=== PATIENT | female | born 1950 | race Caucasian/White ===

== ENCOUNTER 2024-10-25 21:11 | Inpatient (IN) | payer MEDICARE, SELFPAY ==
[2024-10-25] VITALS (19 sets, daily range): BP systolic 113–164; BP diastolic 56–72; PULSE 68–77; TEMP 36.4; O2SAT 85–95; BMI 51.9
--- NOTE | 2024-10-25 21:19 | ECG_ITS ---
The [facility] Test Date: 2024-10-25 Pat Name: Myriam Altamirano Department: Room: - Gender: Female Cross Country/Track And Field Coach: : 1950 Requested By: [id number] Order Number: [id number] Reading MD: SYDNI MONTOYA M.D. Measurements Intervals [place] Rate: 68 P: 68 WV: 168 QRS: 38 QRSD: 92 T: 45 QT: 388 QTc: 405 Interpretive Statements 1100 Sinus rhythm 2420 RSR (QR) in lead V1/V2, consistent with right ventricular conduction delay 9130 borderline ECG Compared to ECG 07/17/2020 17:14:17 Sinus tachycardia no longer present Electronically Signed On 10-28-2024 12:46:32 EDT by SYDNI MONTOYA M.D.
[2024-10-25 22:00] LABS: Hematocrit 36.0 % (36.0-48.0); Hemoglobin 10.7 g/dL (12.0-16.0); Immature Granulocytes Abs Auto 0.03 10^3/uL (0.00-0.03); Immature Granulocytes Pct Auto 0.4 % (0.0-0.5); Lymphocytes Absolute Auto 1.7 10^3/uL (1.2-3.8); Mean Corpuscular HGB Conc 29.7 g/dL (29.9-35.2); Mean Corpuscular Hemoglobin 29.2 pg (26.7-34.0); Mean Corpuscular Volume 98.4 fL (81.0-99.0); Platelet Count 255 10^3/uL (150-450); Red Blood Count 3.66 10^6/uL (4.20-5.40); White Blood Count 7.9 10^3/uL (4.0-11.0)
[2024-10-25 22:18] LABS: Anion Gap 3.0; Blood Urea Nitrogen 10.0 mg/dL (7.0-18.0); Calcium 8.8 mg/dL (8.5-10.1); Carbon Dioxide 40.9 mmol/L (21.0-32.0); Chloride 102 mmol/L (98-107); Estimated GFR (African America >60 (>=60 mL/min/1.73m^2); Estimated GFR (Non-African Ame >60 (>=60 mL/min/1.73m^2); Glucose 114 mg/dL (74-106); Magnesium 2.1 mg/dL (1.8-2.4); Potassium 3.9 mmol/L (3.5-5.1); Sodium 142 mmol/L (136-145)
[2024-10-26] VITALS (44 sets, daily range): BP systolic 120–171; BP diastolic 59–72; PULSE 67–97; RESP 12; TEMP 36.3–36.6; O2SAT 73–96; BMI 51.9
--- NOTE | 2024-10-26 01:01 | ED.GENADUL1 ---
HPI HPI - General Adult General Chief complaint: Syncope Stated complaint: other Time Seen by Provider: 10/25/24 21:18 Source: patient Mode of arrival: ambulance Limitations: no limitations History of Present Illness HPI narrative: Patient is a 74-year-old female, history significant for morbid obesity, COPD on 3 L nasal cannula, hypertension, diabetes, presenting to the emergency department via EMS for concerns of a syncopal event. Patient was watching TV with her mother when she reportedly went unresponsive. The mother could not awake the patient, so she called EMS. According to EMS, on their arrival, the patient was unresponsive and required numerous sternal rubs until she finally came to. There is no report of seizure-like activity. She had no postictal state. The patient herself states she is tired, and does not believe that she passed out. She has never had episodes of syncope in the past. She denies history of heart disease, prior DC, pacemaker placement, or history of arrhythmia. She is currently asymptomatic without fevers, chills, flulike symptoms, abdominal pain, nausea, vomiting, headache, weakness, or any other concerning symptoms. Related Data Home Medications ?Medication ?Instructions ?Recorded ?Confirmed baclofen 10 mg tablet 10 mg PO Q8H 10/25/24 10/25/24 budesonide 160 mcg-glycopyr 9 1 inh inhalation DAILY 10/25/24 10/25/24 mcg-formot 4.8 mcg/actuation HFA inhaler (Breztri Aerosphere) esomeprazole magnesium 40 mg 40 mg PO Q24H 10/25/24 10/25/24 capsule,delayed release fluticasone propionate inhalation 10/25/24 furosemide 40 mg tablet (Lasix) 40 mg PO DAILY 10/25/24 10/25/24 levothyroxine 137 mcg tablet 137 mcg PO DAILY 10/25/24 10/25/24 losartan 100 mg tablet 100 mg PO DAILY 10/25/24 10/25/24 montelukast 10 mg tablet 10 mg PO DAILY 10/25/24 10/25/24 trazodone 150 mg tablet 150 mg PO HS 10/25/24 10/25/24 Allergies Allergy/AdvReac Type Severity Reaction Status Date / Time Penicillins Allergy Hives Verified 10/25/24 21:25 Sulfa (Sulfonamide Allergy Rash Verified 10/25/24 21:25 Antibiotics) Review of Systems ROS Status of ROS 10 or more systems reviewed and unremarkable except as noted in history and below PFSH PFSH Social History Little interest or pleasure in doing things: not at all Feeling down, depressed, or hopeless: not at all Exam Narrative Exam Narrative: CONSTITUTIONAL: Well-appearing, answering questions and following commands appropriately SKIN: Was warm and dry. EYES: No scleral icterus or conjunctival pallor EARS, NOSE, THROAT: No JVD. RESPIRATORY: Clear to auscultation bilaterally, no wheezes, crackles, or stridor, no use of accessory muscles. On 3 L nasal cannula CARDIOVASCULAR: Normal rate and regular rhythm. There is no S3, S4, murmur, rub. Radial and dorsalis pedis pulses are 2+ and symmetrical. GASTROINTESTINAL: Abdomen was soft, non-tender, and non-distended. There is no guarding or rebound tenderness MUSCULOSKELETAL: There was no lower extremity edema, erythema, or tenderness. NEUROLOGIC: Patient is awake and alert. Equal strength in all extremities. Facies were symmetrical. Constitutional Vital Signs, click to edit/add: Last Vital Signs Temp 97.6 F 10/25/24 21:18 Pulse 76 10/25/24 23:10 Resp 17 10/25/24 23:10 BP 130/56 10/25/24 23:00 Pulse Ox 85 L 10/25/24 23:10 O2 Del Method Nasal Cannula 10/25/24 21:18 O2 Flow Rate 3 10/25/24 21:18 Course Vital Signs Vital signs: Vital Signs Pulse Oximetry 94 L 10/25/24 21:16 Temperature 97.6 F 10/25/24 21:18 Pulse Rate 76 10/25/24 23:10 Respiratory Rate 17 10/25/24 23:10 Blood Pressure 130/56 10/25/24 23:00 Pulse Oximetry 85 L 10/25/24 23:10 Oxygen Delivery Method Nasal Cannula 10/25/24 21:18 Oxygen Delivery Flow Rate 3 10/25/24 21:18 Medical Decision Making [facility] Narrative Medical decision making narrative: Patient is a 74-year-old female presenting to the emergency department via EMS for witnessed syncopal event. Vital signs on arrival are within normal limits. She is afebrile and hemodynamically stable. She is saturating 95% on her home oxygen requirements of 3 L nasal cannula. Patient awake, alert, and mentating appropriately. She does not appear to be postictal. She has an unremarkable exam with no neurologic deficits. Differential diagnose includes cardiogenic syncope, arrhythmia, ACS, electrolyte/metabolic derangement, and less likely seizure. IV was established and laboratory studies were obtained. CT head was ordered. Twelve-lead EKG demonstrated normal sinus rhythm without evidence of acute myocardial ischemia. Normal rate of 68. Normal axis. Patient has a right bundle branch block, with no prior EKGs for comparison - likely related to underlying history of COPD. No ST segment elevations. Laboratory studies were unremarkable. No significant electrolyte derangement. She is alkalotic, however this is likely chronic and related to COPD/chronic CO2 retention/elevated bicarb. No evidence of acute kidney injury. No anemia, leukocytosis, or thrombocytopenia. Initial and repeat 2-hour troponin were negative. CT head independently reviewed/interpreted by myself demonstrated no acute intracranial pathology or hemorrhage. Final read by radiology pending at the time of admission. Though the patient failed to identify any emergent pathologies, given the patient's history and risk factors, I do believe the patient warrants an observation to the hospital on telemetry for further monitoring/workup. I did discuss the patient with Dr. Everett, who accepted the patient. Medical Records Medical records reviewed: Yes I reviewed the patient's medical records Lab Data Lab results reviewed: Yes I reviewed the patient's lab results Labs: Lab Results 10/25/24 10/26/24 Range/Units 21:45 00:08 WBC 7.9 (4.0-11.0) 10^3/uL RBC 3.66 L (4.20-5.40) 10^6/uL Hgb 10.7 L (12.0-16.0) g/dL Hct 36.0 (36.0-48.0) % MCV 98.4 (81.0-99.0) fL MCH 29.2 (26.7-34.0) pg MCHC 29.7 L (29.9-35.2) g/dL RDW 13.5 (11.0-15.0) % Plt Count 255 (150-450) 10^3/uL MPV 10.3 (9.5-13.5) fL Neut % (Auto) 63.9 (43.0-75.0) % Lymph % (Auto) 21.9 (20.5-60.0) % [place] % (Auto) 7.9 (1.7-12.0) % Eos % (Auto) 5.0 (0.9-7.0) % Baso % (Auto) 0.9 (0.2-2.0) % Neut # (Auto) 5.0 (1.4-6.5) 10^3/uL Lymph # (Auto) 1.7 (1.2-3.8) 10^3/uL [place] # (Auto) 0.6 (0.3-0.8) 10^3/uL Eos # (Auto) 0.4 (0.0-0.7) 10^3/uL Baso # (Auto) 0.1 (0.0-0.1) 10^3/uL Abs Immat Gran (auto) 0.03 (0.00-0.03) 10^3/uL Imm/Tot Granulo (auto) 0.4 (0.0-0.5) % Sodium 142 (136-145) mmol/L Potassium 3.9 (3.5-5.1) mmol/L Chloride 102 (98-107) mmol/L Carbon Dioxide 40.9 H (21.0-32.0) mmol/L Anion Gap 3.0 BUN 10.0 (7.0-18.0) mg/dL Creatinine 0.86 (0.55-1.02) mg/dL Est GFR ( Amer) >60 (>=60 mL/min/1.73m^2) Est GFR (Non-Af Amer) >60 (>=60 mL/min/1.73m^2) BUN/Creatinine Ratio 11.6 Glucose 114 H (74-106) mg/dL Calcium 8.8 (8.5-10.1) mg/dL Magnesium 2.1 (1.8-2.4) mg/dL Troponin I High Sens 5.4 5.4 (4.0-51.3) pg/mL Discharge Plan Discharge Chief Complaint: Syncope Clinical Impression: Syncope Qualifiers: Encounter type: initial encounter Patient Disposition: Admitted as Observation Time of Disposition Decision: 00:49 Condition: Good Additional Instructions: Telemetry
--- NOTE | 2024-10-26 05:42 | XR_ITS ---
[address] [address] Patient Name: FRANCIE GARCIA MRN: [id number] date: 1950 Sex: F Assigned Patient Location: MS Current Patient Location: MS Accession/Order Number: [id number] Exam Date: 10/26/2024 09:00 Report Date: 10/26/2024 09:00 At the request of: MARY MANN MD Procedure: XR chest 1V Single view chest: CLINICAL HISTORY: SYncope COMPARISON: None FINDINGS: Cardiomegaly with vascular congestion. No consolidation pneumothorax or large pleural effusion or free air. XR/XR chest 1V IMPRESSION: CHF FINDINGS. Impression dictated by: Shiv Schultz Jr.OMariaa 10/26/2024 9:00 AM Dictation Location: [place] [address] Electronically authenticated by: [id number] Y Date: 10/26/2024 09:00
[2024-10-26] MEDS: LEVOTHYROXINE SODIUM 25 MCG TABLET PO (06:23)
[2024-10-26] MEDS: ASPIRIN 81 MG TAB.CHEW PO (06:23)
[2024-10-26] MEDS: LEVOTHYROXINE SODIUM 112 MCG TABLET PO (06:23)
[2024-10-26 06:44] LABS: Hematocrit 33.8 % (36.0-48.0); Hemoglobin 10.1 g/dL (12.0-16.0); Immature Granulocytes Abs Auto 0.02 10^3/uL (0.00-0.03); Immature Granulocytes Pct Auto 0.3 % (0.0-0.5); Lymphocytes Absolute Auto 1.7 10^3/uL (1.2-3.8); Mean Corpuscular HGB Conc 29.9 g/dL (29.9-35.2); Mean Corpuscular Hemoglobin 29.4 pg (26.7-34.0); Mean Corpuscular Volume 98.5 fL (81.0-99.0); Platelet Count 210 10^3/uL (150-450); Red Blood Count 3.43 10^6/uL (4.20-5.40); White Blood Count 7.0 10^3/uL (4.0-11.0)
[2024-10-26 07:05] LABS: Anion Gap 3.1; Blood Urea Nitrogen 10.0 mg/dL (7.0-18.0); Calcium 8.8 mg/dL (8.5-10.1); Carbon Dioxide 41.0 mmol/L (21.0-32.0); Chloride 102 mmol/L (98-107); Estimated GFR (African America >60 (>=60 mL/min/1.73m^2); Estimated GFR (Non-African Ame >60 (>=60 mL/min/1.73m^2); Glucose 101 mg/dL (74-106); Potassium 4.1 mmol/L (3.5-5.1); Sodium 142 mmol/L (136-145)
--- NOTE | 2024-10-26 08:00 | ECG_ITS ---
[facility] Test Date: 2024-10-26 Pat Name: FRANCIE GARCIA Department: Room: [facility] Gender: Female Research Technologist: : 1950 Requested By: Order Number: [id number] Reading MD: SYDNI MONTOYA M.D. Measurements Intervals [place] Rate: 84 P: 60 OR: 176 QRS: 27 QRSD: 94 T: 53 QT: 359 QTc: 425 Interpretive Statements SINUS RHYTHM POSSIBLE RIGHT VENTRICULAR CONDUCTION DELAY [RSR (QR) IN V1/V2] Compared to ECG 10/25/2024 21:24:40 No significant changes Electronically Signed On 10-28-2024 12:47:16 EDT by SYDNI MONTOYA M.D.
[2024-10-26] MEDS: FUROSEMIDE 40 MG TABLET PO (09:41)
[2024-10-26] MEDS: PANTOPRAZOLE SODIUM 40 MG TABLET.DR PO (09:41)
[2024-10-26] MEDS: SENNOSIDES/DOCUSATE SODIUM 1 TAB TABLET PO (09:41)
[2024-10-26] MEDS: MONTELUKAST SODIUM 10 MG TABLET PO (09:41)
[2024-10-26] MEDS: LOSARTAN POTASSIUM 50 MG TABLET 100 MG PO (09:41)
[2024-10-26] MEDS: BUDESONIDE 0.5 MG/2 ML AMPULE NEB IH ×2 (12:20→20:47)
[2024-10-26] MEDS: ALBUTEROL SULFATE 2.5 MG/3 ML VIAL NEB IH ×3 (12:20→20:46)
--- NOTE | 2024-10-26 13:41 | PM.HP ---
HPI H&P: HPI History of Present Illness Chief complaint: SYNCOPE Narrative: This is a 74-year-old woman who was brought to the ER in [place] after having an episode of syncope with unresponsiveness at home. She was thereafter admitted to the hospital. The ER report was that she was reclining in her recliner at home, as she usually does, watching TV. 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 The mother could not wake up this patient so she called EMS. According to the EMS on their arrival the patient was unresponsive and required numerous sternal rubs until she finally came to. There was no report of seizure activity. She had no postictal state. The patient stated that she was tired. When I see her on rounds this morning the patient says that she did not know what was going on until she really woke up in the ambulance. She recalls having another episode like this 6 months ago, but she did not seek medical treatment for that. She denies any symptoms that are abnormal over the last few weeks or months. At baseline she is very minimally active. She says that she cares for her mother who is 93 and her mother's in their home. There are notes in the chart that say that she is exhausted from caring for this individual but when I asked the patient about this she says that it something that she enjoys and she finds it easy to take care of her mother. The patient will mostly cook freezer meals for all 3 people in the household or occasionally order in food. She says the 3 of us are just not able to cook for ourselves. And so the patient leads a very sedentary lifestyle just ambulating around their dwelling. With this level of ambulation she does not feel any lightheadedness or dizziness or any presyncopal symptoms. She does not feel any chest pain or pressure or shortness of breath or feeling like she might pass out when she does that level of exertion. She says that she had an episode of passing out like this 6 months ago that was exactly the same: It was in the evening and they were watching television when she was in the recliner and she thinks that she went to sleep for a while. Her mother became concerned and poked at her until the patient gradually woke up. She does have a BMI of 51.9. Her weight is 128.82 kg. She has been using oxygen at 3 L by nasal cannula for a long time. She has a history of hypertension and diabetes. She says that she used to see Dr. Day in [place]. She says that she can no longer see him. She says I must of mouth off and said something bad. She certainly has a lot of short-term memory issues. She had difficulty telling me the name of her new primary care provider. She says I have had a lot of difficulty remembering things over the last year. She thinks that she was told that she had asthma but she cannot remember which doctor told her about asthma. She did have a sleep apnea machine that she threw away a few years ago. She cannot really remember the details. She describes the typical problems with somebody getting used to wearing a sleep apnea machine with it being uncomfortable and waking up at nighttime and finding out that the sleep apnea machine had been mildly dislodged. She cannot tell me for certain how many years ago she threw away the sleep apnea machine. Overnight there must been a large concern for obstructive sleep apnea because there are orders in the computer that she can use her own sleep apnea machine and the hospital BiPAP machine is in the room but the patient says it was not applied to her last night, so I have a clinical suspicion that the nighttime nursing staff saw her to have obstructive sleep apnea breathing and became acutely concerned. She says that she quit smoking 40 years ago. When she did smoke it was 1 pack a day. So I would give her 29-leso-iwdu history. She says that she only drinks alcohol on holidays. She denies illicit drug use. Opioid HPI Opioid Management Most Recent Pain and Opioid Data: Last Pain Assessment Today, 05:16 Last ORT Total Score 0 Today, 04:37 Last ORT Risk Category Low Risk Today, 04:37 Review of Systems ROS Narrative A 10 point review of systems is negative except as mention above in the history present illness. [facility] Medical History COPD (chronic obstructive pulmonary disease) ?J44.9 - Chronic obstructive pulmonary disease, unspecified (ICD-10) Hypertension ?I10 - Essential (primary) hypertension (ICD-10) Family History (Updated 10/26/24 @ 13:47 by CRISTHIAN HERMOSILLO) Other Family history of hypertension Social History (Updated 10/26/24 @ 05:10 by Sujatha Werner RN) Within the past year, how often did you have a drink containing alcohol: never Score interpretation: A score less than 3 is consistent with normal alcohol consumption. Smoking status: Never smoker Second hand tobacco smoke exposure: No Non-prescribed substance use: denies use Known occupational exposures/hazards: No Highest level of school completed/degree received: 9th grade Do you want help with school or training: No Are you now , , , , never or living with a partner: don't know In a typical week, how many times do you talk on the telephone with family, friends, or neighbors: 3 or more times per week Little interest or pleasure in doing things: not at all Feeling down, depressed, or hopeless: not at all Feel stressed/tense/nervous/anxious/difficulty sleeping: only a little Life stressors: other Life stressor details: Pt feels exhausted because she is taking care of her 93yr old mother at home, and is up constantly through out the evening/night with her. Due to disability, difficulty making decisions: No Meds Home Medications and Allergies Home Medications ?Medication ?Instructions ?Recorded ?Confirmed ?Type baclofen 10 mg tablet 10 mg PO Q8H PRN MUSCLE SPASMS 10/25/24 10/26/24 History budesonide 160 mcg-glycopyr 9 1 inh inhalation DAILY 10/25/24 10/25/24 History mcg-formot 4.8 mcg/actuation HFA inhaler (Breztri Aerosphere) esomeprazole magnesium 40 mg 40 mg PO Q24H 10/25/24 10/25/24 History capsule,delayed release furosemide 40 mg tablet (Lasix) 40 mg PO DAILY 10/25/24 10/25/24 History levothyroxine 137 mcg tablet 137 mcg PO DAILY 10/25/24 10/25/24 History losartan 100 mg tablet 100 mg PO DAILY 10/25/24 10/25/24 History montelukast 10 mg tablet 10 mg PO DAILY 10/25/24 10/25/24 History trazodone 150 mg tablet 150 mg PO HS 10/25/24 10/25/24 History Allergies Allergy/AdvReac Type Severity Reaction Status Date / Time Penicillins Allergy Hives Verified 10/25/24 21:25 Sulfa (Sulfonamide Allergy Rash Verified 10/25/24 21:25 Antibiotics) Exam Narrative Exam Narrative: General: In a bedside recliner chair. Head: Normocephalic atraumatic. Eyes: EOMI. PERRLA. Neck: Very broad-based neck. I do not appreciate any lymphadenopathy. Mouth: Large tongue. Mallampati grade 4 oropharynx. Pulmonary: Clear to auscultation throughout. No wheezing. Cardiac: Regular rate and rhythm with no murmurs to auscultation. Perfect normal sinus rhythm on telemetry. Gastrointestinal: Abdomen soft, normal bowel sounds to auscultation. Skin: Warm and dry and well-perfused. Lower extremities: Pitting edema from her ankles up to about her shins bilaterally. Neurologic: It is clear that she has some short-term memory defects. She moves all 4 extremities well so I detect no gross neurologic deficits. Constitutional Vital Signs, click to edit/add: Last Vital Signs Temp 97.9 F 10/26/24 11:40 Pulse 76 10/26/24 12:21 Resp 18 10/26/24 11:40 BP 146/72 H 10/26/24 11:40 Pulse Ox 96 10/26/24 12:21 O2 Del Method Nasal Cannula 10/26/24 12:21 O2 Flow Rate 3 10/26/24 12:21 FiO2 35 10/26/24 04:41 Results Labs Labs: Short CBC 10/25/24 10/26/24 Range/Units 21:45 06:39 WBC 7.9 7.0 (4.0-11.0) 10^3/uL Hgb 10.7 L 10.1 L (12.0-16.0) g/dL Hct 36.0 33.8 L (36.0-48.0) % Plt Count 255 210 (150-450) 10^3/uL BMP 10/25/24 10/26/24 21:45 06:39 Sodium 142 142 Potassium 3.9 4.1 Chloride 102 102 Carbon Dioxide 40.9 H 41.0 H BUN 10.0 10.0 Creatinine 0.86 0.58 Glucose 114 H 101 Calcium 8.8 8.8 Assessment and Plan Assessment and Plan (1) Syncope: Qualifiers: Syncope type: unspecified Qualified Code(s): R55 - Syncope and collapse (2) Unresponsiveness: (3) Hypertension: Qualifiers: Hypertension type: primary hypertension Qualified Code(s): I10 - Essential (primary) hypertension (4) JUNG (obstructive sleep apnea): (5) BMI 50.0-59.9, adult: (6) Diabetes mellitus: Qualifiers: Diabetes mellitus type: type 2 Diabetes mellitus terminal make up operator insulin use: without terminal make up operator use Diabetes mellitus complication status: without complication Qualified Code(s): E11.9 - Type 2 diabetes mellitus without complications (7) Chronic hypoxic respiratory failure, on home oxygen therapy: Plan Assessment: Episode of syncope with prolonged unresponsiveness. Diabetes. Hypertension. Untreated obstructive sleep apnea. BMI of 51.9; super morbid obesity. Chronic hypoxic respiratory failure on 3 L oxygen by nasal cannula at home all the time. Plan: Hospital admission, inpatient status. Check echocardiogram. Check carotid Doppler ultrasound. Continuous telemetry monitoring. Check EKG in the morning. Check labs again in the morning, including hemoglobin A1c. Depending on progress she may benefit from physical therapy and Occupational Therapy evaluations. Because the hospital BiPAP machine is in the room I offered that the patient should try it tonight because staff is nearby they can help her if she needs it and she was agreeable to do this. Further care for this patient will be provided by my hospitalist colleague Dr. Everett taking over tomorrow morning.
[2024-10-26] MEDS: ENOXAPARIN SODIUM 40 MG/0.4 ML SYRINGE SUBQ (14:52)
[2024-10-26] MEDS: BACLOFEN 10 MG TABLET PO (20:43)
[2024-10-27] VITALS (22 sets, daily range): BP systolic 112–149; BP diastolic 55–84; PULSE 64–88; RESP 12; TEMP 36.3–36.6; O2SAT 93–96
[2024-10-27] MEDS: ALBUTEROL SULFATE 2.5 MG/3 ML VIAL NEB IH ×3 (05:03→20:00)
[2024-10-27] MEDS: LEVOTHYROXINE SODIUM 112 MCG TABLET PO (05:27)
[2024-10-27] MEDS: LEVOTHYROXINE SODIUM 25 MCG TABLET PO (05:27)
[2024-10-27 06:31] LABS: Hematocrit 36.8 % (36.0-48.0); Hemoglobin 11.2 g/dL (12.0-16.0); Immature Granulocytes Abs Auto 0.03 10^3/uL (0.00-0.03); Immature Granulocytes Pct Auto 0.4 % (0.0-0.5); Lymphocytes Absolute Auto 2.2 10^3/uL (1.2-3.8); Mean Corpuscular HGB Conc 30.4 g/dL (29.9-35.2); Mean Corpuscular Hemoglobin 29.9 pg (26.7-34.0); Mean Corpuscular Volume 98.1 fL (81.0-99.0); Platelet Count 255 10^3/uL (150-450); Red Blood Count 3.75 10^6/uL (4.20-5.40); White Blood Count 7.7 10^3/uL (4.0-11.0)
[2024-10-27 06:47] LABS: Anion Gap 6.6; Blood Urea Nitrogen 13.0 mg/dL (7.0-18.0); Calcium 9.1 mg/dL (8.5-10.1); Carbon Dioxide 38.4 mmol/L (21.0-32.0); Chloride 99 mmol/L (98-107); Estimated GFR (African America >60 (>=60 mL/min/1.73m^2); Estimated GFR (Non-African Ame >60 (>=60 mL/min/1.73m^2); Glucose 112 mg/dL (74-106); Potassium 4.0 mmol/L (3.5-5.1); Sodium 140 mmol/L (136-145)
--- NOTE | 2024-10-27 06:48 | CA_ITS ---
Patient Name: FRANCIE GARCIA MR#: [id number] : 1950 Exam Date: 10/27/2024 Ordering Doctor: MARY MANN ECHOCARDIOGRAM REPORT PROCEDURE: CA ECHO DOPPLER COMPLETE INDICATIONS: Syncope COMPARISON: None. DESCRIPTION: COMPLETE ECHOCARDIOGRAM Real-time transthoracic echocardiography with 2D, M-mode, spectral and color flow Doppler performed. QUALITY: Technical quality was adequate. LEFT VENTRICLE: Normal chamber size. Mild concentric left ventricular hypertrophy. Global left ventricular systolic function is normal. LV EF: Visual estimation of left ventricular ejection fraction is 55-60%. DIASTOLIC: Diastolic function is indeterminate. ATRIAL SEPTUM: LEFT ATRIUM: Mild dilatation. RIGHT ATRIUM: Mild dilatation. RIGHT VENTRICLE: Normal chamber size. Normal right ventricular systolic function. TRICUSPID VALVE: Normal mobility and thickness. No stenosis with mild regurgitation. Moderate pulmonary hypertension. RVSP 47 mmHg. MITRAL VALVE: Normal mobility and thickness. No evidence of mitral valve stenosis. There is no mitral annular calcification. Trivial mitral regurgitation. AORTIC VALVE: Normal trileaflet appearance. No visible sclerosis. Normal leaflet mobility. No evidence of aortic valve stenosis. No aortic regurgitation. AORTIC ROOT: Normal diameter and appearance, measuring 3.3 cm. The ascending aorta is normal in size measuring 2.7 cm. PULMONIC VALVE: Normal thickness and mobility. No stenosis. Trivial regurgitation. PERICARDIUM: No evidence of pericardial effusion. IVC: Collapses with inspirations. Mild dilatation measuring 2.3 cm. PLEURA: CONCLUSION: 1. Mild concentric left ventricular hypertrophy with normal systolic function. Estimated LVEF is 55 to 60%. 2. Normal right ventricular size and systolic function. 3. Mild left atrial dilatation. 4. No significant valvular dysfunction. 5. Moderately elevated right-sided pressures. RVSP is 47 mmHg. Adult Echocardiography Procedure Report Left Ventricle LVEDD (3.7 - 5.6 cm): 4.16 cm LVESD (2.2 - 4.0 cm): 2.62 cm LVIVS thickness (0.6 - 1.2 cm): 1.19 cm LVPW thickness (0.5 - 1.0 cm): 1.13 cm e': 0.10 m/s E - e': 7.63 LVOT Max Gradient: 4.59 mm[Hg] LVOT Area (cm2): 1.07 m/s Peak Velocity (LVOT): 1.07 m/s Mean Velocity (LVOT): 0.77 m/s LVOT Diameter 2.17 cm Left Atrium Left Atrium Systolic Dimension: 4.70 cm Mitral Valve MV E to A Ratio: 1.06 Mitral Valve A-Wave Peak Velocity: 0.72 m/s Mitral Valve E-Wave Peak Velocity: 0.76 m/s Right Ventricle RV Internal Diastolic Dimension: 3.61 cm Aorta AO Root Diam: 2.70 cm Ascending Ao Diam: 2.46 cm Aortic Valve AoV Area (Peak Bassam): 2.15 cm2, 2.15 cm2 AoV Area (VTI): 2.41 cm2, 2.41 cm2 Peak Velocity(Antegrade Flow): 1.84 m/s Peak Gradient(Antegrade Flow): 13.57 mm[Hg] Mean Velocity(Antegrade Flow): 1.19 m/s Mean Gradient(Antegrade Flow): 6.75 mm[Hg] Velocity Time Integral: 35.45 cm Tricuspid Valve Peak Velocity (Regurgitant Flow): 3.13 m/s, 2.62 m/s Pulmonic Valve Mean Gradient: 3.02 mm[Hg] Mean Velocity: 0.82 m/s Peak Velocity: 1.24 m/s, 1.26 m/s Peak Gradient: 6.13 mm[Hg], 6.36 mm[Hg] Right Atrium Right Atrium Systolic Pressure: 39.71 ml, 39.71 ml Dictated by: Emiliano Caban M.D. on 10/27/2024 at 18:25 Approved by: Emiliano Caban M.D. on 10/27/2024 at 18:30
--- NOTE | 2024-10-27 07:00 | CT_ITS ---
The [address] [address] Patient Name: FRANCIE GARCIA MRN: [id number] date: 1950 Sex: F Assigned Patient Location: MS Current Patient Location: MS Accession/Order Number: [id number] Exam Date: 10/27/2024 12:59 Report Date: 10/27/2024 13:04 At the request of: CRISTHIAN HERMOSILLO Procedure: CT head/brain wo/w con CT BRAIN WITHOUT CONTRAST: CLINICAL HISTORY: poor memory. decreased responsiveness. COMPARISON: CT head 10/26/2024 TECHNIQUE: Contiguous axial unenhanced images were obtained through the brain. This CT exam was performed using one or more following dose reduction techniques: Automated exposure control, adjustment of the mA and/or kV according to patient size, or use of iterative reconstruction technique. FINDINGS: There is no evidence of midline shift, intra or extra-axial fluid collection, hemorrhage or CT evidence of acute large vascular distribution stroke. Central involutional changes and moderate chronic small vessel ischemic disease. No shift midline structure. Basal cisterns are patent. Cataract surgery. Visualized paranasal sinuses are clear. The surrounding soft tissues are normal. CT/CT head/brain wo/w con IMPRESSION: NO ACUTE INTRACRANIAL ABNORMALITY. MODERATE CHRONIC MICROVASCULAR CHANGES. Impression dictated by: Robbie Davidson M.D. 10/27/2024 1:04 PM Dictation Location: [place] [address] Electronically authenticated by: [id number] Y Date: 10/27/2024 13:04
--- NOTE | 2024-10-27 07:00 | ECG_ITS ---
[facility] Test Date: 2024-10-27 Pat Name: FRANCIE GARCIA Department: Room: [facility] Gender: Female Hand Winder: : 1950 Requested By: [id number] Order Number: [id number] Reading MD: SYDNI MONTOYA M.D. Measurements Intervals [place] Rate: 71 P: 64 LA: 176 QRS: 22 QRSD: 95 T: 39 QT: 381 QTc: 415 Interpretive Statements SINUS RHYTHM POSSIBLE RIGHT VENTRICULAR CONDUCTION DELAY [RSR (QR) IN V1/V2] Borderline ECG Compared to ECG 10/26/2024 07:47:09 No significant changes Electronically Signed On 10-28-2024 12:50:06 EDT by SYDNI MONTOYA M.D.
[2024-10-27] MEDS: FUROSEMIDE 40 MG TABLET PO (08:51)
[2024-10-27] MEDS: ENOXAPARIN SODIUM 40 MG/0.4 ML SYRINGE SUBQ (08:51)
[2024-10-27] MEDS: PANTOPRAZOLE SODIUM 40 MG TABLET.DR PO (08:51)
[2024-10-27] MEDS: LOSARTAN POTASSIUM 50 MG TABLET 100 MG PO (08:51)
[2024-10-27] MEDS: ASPIRIN 81 MG TAB.CHEW PO (08:51)
[2024-10-27] MEDS: MONTELUKAST SODIUM 10 MG TABLET PO (08:51)
--- NOTE | 2024-10-27 09:45 | CM.NOTE ---
Rounds made with Dr. Everett, discussed with pt diagnosis and plan of care. Pt does wear home oxygen @3L NC through [employer]. Pt also states she had home BIPAP but got angry and put it in the garbage. Pt does states it has been several years since last sleep study. Updated SS and she will call [employer] to attempt to track where pt's BIPAP had been from, pt does not recall at this time. Pt will have Sleep study ordered prior to discharge for outpatient sleep study to be completed.
--- NOTE | 2024-10-27 10:05 | SWNOTE1 ---
SW spoke to case management and pt will need sleep study, per patient she had thrown away her bipap/cpap machine. She thinks it was from [employer], which was bought out by [email or web address]. SW to call. MORENA called [employer] and they do not have a record on file that says she has had Bipap/Cpap machine from them, only oxygen.
--- NOTE | 2024-10-27 10:16 | SWNOTE1 ---
MORENA called [employer] back to find out how much oxygen is provided. MSC voiced she is prescribed 2 liters of home oxygen continuous nasal canula. Prescription was from March. SW asked again about CPAP, they voiced they can see she was prescribed one, but it was not by them. SW to call other DME companies.
[2024-10-27] MEDS: ACETAMINOPHEN 325 MG TABLET 650 MG PO ×2 (10:25→18:34)
--- NOTE | 2024-10-27 10:36 | SWNOTE1 ---
MORENA met with pt to discuss dc needs. Pt lives at home with her mother and her step father. SW asked if she cared for them at home. She voiced that she mainly just makes sure they have food. She voiced she is just there to keep her mother company. She stated her mother has caregivers that come in to help her step father with bathing and they also help her mother with bathing. She voiced she is not overwhelmed with caring for her mother at home. Pt does wear home oxygen. MORENA advised that SW called [employer] that she is prescribed 2 liters. She voiced she has been turning it up. MORENA advised to pt that we will monitor while here and if needs new prescription, we will check on that. SW let pt know that we will have our therapy team come in and work with pt. Pt voiced that her daughter is a doctor and she wants her to go to rehab for a short time. She voiced she is open to this. SW let her know SW will be back to discuss once our hospitalist speaks with her daughter and therapy works with her. MORENA did ask her about her home cpap/bipap. She voiced she is not sure where it was from. MORENA provided names of various DME companies, she recognized [employer]. SW to call.
[2024-10-27] MEDS: BUDESONIDE 0.5 MG/2 ML AMPULE NEB IH ×2 (11:18→20:00)
--- NOTE | 2024-10-27 12:26 | PM.PN ---
Progress Note: Subjective Subjective Interval history: Patient slept well last night using hospital CPAP machine. Patient is. No reported nausea or vomiting Exam Narrative Exam Narrative: [pt is awake and alert. oriented to place, time and person, morbidly obese HEENT: [place] conjunctiva and NL buccal mucosa Neck: Supple, no tenderness Endocrine: No Thyromegaly. Vascular: No JVD or carotid bruit. Lymphatic: No cervical lymphadenopathy. Chest: CTA no DTP. Heart RRR, no extra sound or murmur. Abd: Soft, no tenderness, no rebound and no rigidity. Increase abd girth therefore clinically I could not exclude the possibility of intra abd mass or organomegaly. LE: No cyanosis or clubbing, no varices or edema. Neuro: A A O. Nl speech, comprehension and attention. Nl and symetrical motor and tone examination through out. []] Constitutional Vital Signs, click to edit/add: Last Vital Signs Temp 97.7 F 10/27/24 11:50 Pulse 76 10/27/24 11:50 Resp 20 10/27/24 11:50 BP 129/79 10/27/24 11:50 Pulse Ox 94 L 10/27/24 11:50 O2 Del Method Nasal Cannula 10/27/24 11:50 O2 Flow Rate 3 10/27/24 11:50 FiO2 94 10/27/24 05:03 Progress Note: Objective Labs Labs: Short CBC 10/27/24 Range/Units 06:18 WBC 7.7 (4.0-11.0) 10^3/uL Hgb 11.2 L (12.0-16.0) g/dL Hct 36.8 (36.0-48.0) % Plt Count 255 (150-450) 10^3/uL BMP 10/27/24 06:18 Sodium 140 Potassium 4.0 Chloride 99 Carbon Dioxide 38.4 H BUN 13.0 Creatinine 0.87 Glucose 112 H Calcium 9.1 Progress Note: A&P Assessment and Plan (1) Syncope: Qualifiers: Syncope type: unspecified Qualified Code(s): R55 - Syncope and collapse (2) Unresponsiveness: (3) Hypertension: Qualifiers: Hypertension type: primary hypertension Qualified Code(s): I10 - Essential (primary) hypertension (4) JUNG (obstructive sleep apnea): (5) BMI 50.0-59.9, adult: (6) Diabetes mellitus: Qualifiers: Diabetes mellitus type: type 2 Diabetes mellitus termite exterminator insulin use: without termite exterminator use Diabetes mellitus complication status: without complication Qualified Code(s): E11.9 - Type 2 diabetes mellitus without complications (7) Chronic hypoxic respiratory failure, on home oxygen therapy: Plan Transient loss of consciousness. Sleep apnea, noncompliance with using CPAP in fact patient throughout her CPAP machine in the garbage. Could be related to a sleep apnea, hypercapnic episode. CAT scan of the head does not show any acute intracranial process. No neurological deficit to suggest acute ischemic CVA. Alternatively, patient could have had nonconvulsive seizure with a postictal state. No significant metabolic derangement seen on her blood work. Continue CPAP. Try to arrange for another CPAP and/or sleep study. May need to follow-up with neurology. May need to have an EEG. Continue telemetry monitoring rule out cardiac dysrhythmia as a cause of her transit unconsciousness. Echocardiogram rule out significant valvular disease or cardiomyopathy. Chronic hypoxic respiratory failure Patient states that she has both COPD and asthma. She smoked for 20 years in the past. She quit 4 years ago. I recommend another PFT in the outpatient setting. Recommend follow-up with the pulmonary. Hypertension hypothyroidism Continue preadmission home medications Morbid obesity Diet, exercise and lifestyle modification. Consider the use of GLP or gastric bypass. To be arranged in the outpatient setting. Chronic medical conditions not listed above, incidental findings seen on labs and imaging. These would need to be addressed. Could be addressed when time and condition are appropriate. Could be addressed in the outpatient setting by PCP collaboration with other needed outpatient providers.
--- NOTE | 2024-10-27 14:03 | SWNOTE1 ---
MORENA called pt's daughter, Dr. Glover, she is a physician out of state. SW and daughter discussed discharge planning. Daughter had concerns about her weakness and concerns about her ABG'S and if that was causing her confusion. Pt's daughter also had other medical questions she wanted to discuss with physician. SW did let daughter know we did order PT/OT and SW will review those notes once eval completed. Pt's daughter did speak about her cpap and how pt told her she had thrown it away. Daughter is unsure of where it was from. Daughter did ask if we could do sleep study here at hospital during her stay. MORENA advised that we do not do that at this hospital. SW did let her know that SW called [employer] in regards to home 02 and that SW is trying to find out where her old Cpap was from and if we could look in to an emergency one until patient has sleep study. Pt's daughter voiced that transportaton is hard as well as she and other family live out of state. She was hoping pt could get to rehab and then have sleep study done at rehab or have them transport here. MORENA again advised we are waiting to see if she qualifies for rehab and then pt would have to be agreeable. MORENA advised pt's daughter that SW will reach out to physician and see if he can call her and touch base. SW to keep daughter updated in regards to discharge planning.
--- NOTE | 2024-10-27 14:24 | SWNOTE1 ---
MORENA called [facility] to see if pt received a CPAP from them. MORENA spoke to Ariel. She was able to look up pt's name and she said that she is under there [facility] halfway, meaning that pt was at a facility and got one? Korey could see it was from July of 2023 and the [place]. Korey voiced she will call the superintendent container terminal care side of [facility] and call MORENA back.
--- NOTE | 2024-10-27 14:41 | SWNOTE1 ---
MORENA received call back from Korey at [facility] and she voiced she was incorrect and that pt was with them. She stated pt had a Non-Invasive Vent, nebulizers, and oxygen from them, but it was all discontinued back in [address] Silver.
[2024-10-27] MEDS: BACLOFEN 10 MG TABLET PO (21:37)
--- NOTE | 2024-10-27 22:31 | PC.NURSE ---
2200: Patient refusing to wear bipap tonight, states since she has to get up to pee through the night, she does not want to be hooked up to more than she already is. Respiratory notified by [employer].
[2024-10-28] VITALS (22 sets, daily range): BP systolic 99–160; BP diastolic 58–74; PULSE 74–99; RESP 12; TEMP 36.4–36.8; O2SAT 80–97
[2024-10-28] MEDS: ZOLPIDEM TARTRATE 10 MG TABLET PO (00:47)
[2024-10-28] MEDS: LEVOTHYROXINE SODIUM 112 MCG TABLET PO (05:47)
[2024-10-28] MEDS: LEVOTHYROXINE SODIUM 25 MCG TABLET PO (05:47)
--- NOTE | 2024-10-28 08:46 | SWNOTE1 ---
SW called [facility] and pt is not in there system for any DME. Estefani at [facility] did say they do sell used CPAPs for $300, they would need prescripton with settings on it. They do not deliver it, family would have to pick it up.
[2024-10-28] MEDS: ASPIRIN 81 MG TAB.CHEW PO (08:51)
[2024-10-28] MEDS: PANTOPRAZOLE SODIUM 40 MG TABLET.DR PO (08:51)
[2024-10-28] MEDS: MONTELUKAST SODIUM 10 MG TABLET PO (08:51)
[2024-10-28] MEDS: LOSARTAN POTASSIUM 50 MG TABLET 100 MG PO (08:51)
[2024-10-28] MEDS: ENOXAPARIN SODIUM 40 MG/0.4 ML SYRINGE SUBQ (08:51)
[2024-10-28] MEDS: FUROSEMIDE 40 MG TABLET PO (08:51)
--- NOTE | 2024-10-28 10:00 | CM.NOTE ---
Rounds made with Dr. Everett. Potential discharge to home today.
--- NOTE | 2024-10-28 10:04 | SWNOTE1 ---
MORENA called and spoke to pt's daughter. SW updated her about the cpap and the phone calls made to DME companies and that the only way we cane get her one at discharge is from [facility] and it would be a used one for $300. Daughter will pay for this and would like to pursue. SW also let her know that someone would have to pick it up as well. Pt's daughter did ask about [facility] and if someone is able to provide script, SW unsure but will ask DME if they are given with script or bought out right. Daughter also asked about therapy recommendations. MORENA checked and HH recommended. SW to speak with pt about this. Daughter also asked about [employer] doctor in area, SW asked case management and [facility] used to do this, but at this time we have very limited doctors accepting new patients. MORENA advised that Dr. Morales is the only doctor we know accepting new patients. Daughter would like SW to purse this. SW to call Dr. Morales's office. MORENA updated Dr. Everett.
--- NOTE | 2024-10-28 10:27 | CM.NOTE ---
Sleep study forms along with chart information given to Sleep Lab. Discharge Summary will be sent when completed. Sleep Lab will then precert study and call [facility] with time/date of testing.
--- NOTE | 2024-10-28 10:39 | SWNOTE1 ---
MORENA called 's office and set patient up with follow up on Sunday10/31/24. MORENA faxed referral to [address], this is one of the comapnies that are in network with insurance. MORENA to talk with pt. MORENA called Estefani at [facility] and she will fax over order for cpap and we will have Dr. Everett sign order and complete the order.
[2024-10-28] MEDS: BUDESONIDE 0.5 MG/2 ML AMPULE NEB IH ×2 (11:24→20:00)
[2024-10-28] MEDS: ALBUTEROL SULFATE 2.5 MG/3 ML VIAL NEB IH ×2 (11:24→20:00)
--- NOTE | 2024-10-28 11:26 | RESP.RT ---
decreased to 3 LPM
--- NOTE | 2024-10-28 11:34 | SWNOTE1 ---
MORENA called and updated daughter in regards to pt voicing that her brother may have found cpap in closet. Daughter will check on this, but would like to try and get the cpap from [facility]. MORENA advised we are working on this at this time. MORENA updated daughter about sending referral to [address] SW also let daughter know nurse is completing walk test and pt may need home oxygen bumped up as well. Daughter voiced understanding.
--- NOTE | 2024-10-28 11:35 | SWNOTE1 ---
Referral sent to [address] Referral included face sheet, ED note, H&P, provider notes, case management report, and PT/OT notes.
--- NOTE | 2024-10-28 12:03 | SWNOTE1 ---
MORENA faxed face sheet and CPAP order form to [facility]. MORENA also sent picture of walk test to Dr. Everett.
--- NOTE | 2024-10-28 12:15 | PM.PN ---
Progress Note: Subjective Subjective Interval history: Patient did not use her BiPAP machine at night. She is feeling well today. Saturation dropped to 84% on room air this morning. Patient oxygen requirement increased from 2 up to 4 L Exam Narrative Exam Narrative: Morbidly obese. Chest exam revealed fine crackles. Heart is regular. Abdomen soft Constitutional Vital Signs, click to edit/add: Last Vital Signs Temp 98.2 F 10/28/24 07:45 Pulse 77 10/28/24 12:00 Resp 18 10/28/24 07:45 BP 122/73 10/28/24 07:45 Pulse Ox 97 10/28/24 11:25 O2 Del Method Nasal Cannula 10/28/24 11:25 O2 Flow Rate 4 10/28/24 11:25 FiO2 35 10/27/24 05:03 Progress Note: A&P Assessment and Plan (1) Syncope: Qualifiers: Syncope type: unspecified Qualified Code(s): R55 - Syncope and collapse (2) Unresponsiveness: (3) Hypertension: Qualifiers: Hypertension type: primary hypertension Qualified Code(s): I10 - Essential (primary) hypertension (4) JUNG (obstructive sleep apnea): (5) BMI 50.0-59.9, adult: (6) Diabetes mellitus: Qualifiers: Diabetes mellitus type: type 2 Diabetes mellitus intermediate manager insulin use: without intermediate manager use Diabetes mellitus complication status: without complication Qualified Code(s): E11.9 - Type 2 diabetes mellitus without complications (7) Chronic hypoxic respiratory failure, on home oxygen therapy: Plan Transient loss of consciousness. Sleep apnea, noncompliance with using CPAP in fact patient throughout her CPAP machine in the garbage. Could be related to a sleep apnea, hypercapnic episode. CAT scan of the head does not show any acute intracranial process. No neurological deficit to suggest acute ischemic CVA. Alternatively, patient could have had nonconvulsive seizure with a postictal state. No significant metabolic derangement seen on her blood work. Continue CPAP. Try to arrange for another CPAP and/or sleep study. May need to follow-up with neurology. May need to have an EEG. Continue telemetry monitoring rule out cardiac dysrhythmia as a cause of her transit unconsciousness. Echocardiogram rule out significant valvular disease or cardiomyopathy. Echocardiogram came back negative for significant valvular disease or cardiomyopathy to explain to contribute to her loss of consciousness. Acute on chronic hypoxic respiratory failure Acute on chronic diastolic heart failure Obstructive sleep apnea Patient states that she has both COPD and asthma. She smoked for 20 years in the past. She quit 4 years ago. Patient uses 2 L at home but over the last 24 hours her oxygen requirement was increased to 4 L per Chest x-ray showed vascular congestion. Requested the BNP. Requested TSH. Additional diuretics. Patient thus far is 3 L negative balance I recommend another PFT in the outpatient setting. Recommend follow-up with the pulmonary. Patient will be arranged to have CPAP machine to use at home until her sleep study is completed. Patient may need additional pulmonary testing in the outpatient setting including but not limited to PFTs as listed above as well as CAT scan imaging of the chest Requested D-dimer and if positive proceed with the CT of the chest. Hypertension hypothyroidism Continue preadmission home medications Morbid obesity Diet, exercise and lifestyle modification. Consider the use of GLP or gastric bypass. To be arranged in the outpatient setting. Chronic medical conditions not listed above, incidental findings seen on labs and imaging. These would need to be addressed. Could be addressed when time and condition are appropriate. Could be addressed in the outpatient setting by PCP collaboration with other needed outpatient providers. I called and had discussed her case with her daughter Riddhi on the phone on 10/27
[2024-10-28] MEDS: DEXAMETHASONE SOD PHOS 4 MG/ML VIAL 10 MG IV (13:12)
[2024-10-28] MEDS: FUROSEMIDE 40 MG/4 ML VIAL IVP (13:12)
--- NOTE | 2024-10-28 13:30 | SWNOTE1 ---
MORENA received a call from [address] and they are able to accept. Pt is not discharging today. 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 MORENA also let pt's daughter know she is not discharging today.
[2024-10-28 14:49] LABS: Thyroid Stimulating Hormone 8.158 uIU/mL (0.358-3.740)
[2024-10-28 14:52] LABS: NT Pro B Type Natriuretic Pept 93.0 pg/mL (<=900.0)
[2024-10-28] MEDS: ALPRAZOLAM 0.5 MG TABLET PO (20:43)
[2024-10-29] VITALS (8 sets, daily range): BP systolic 119–140; BP diastolic 60–80; PULSE 70–81; RESP 12; TEMP 36.4–36.6; O2SAT 92–96
[2024-10-29] MEDS: LEVOTHYROXINE SODIUM 112 MCG TABLET PO (05:47)
[2024-10-29] MEDS: LEVOTHYROXINE SODIUM 25 MCG TABLET PO (05:47)
[2024-10-29 05:52] LABS: Anion Gap 5.4; Blood Urea Nitrogen 17.0 mg/dL (7.0-18.0); Calcium 9.1 mg/dL (8.5-10.1); Carbon Dioxide 40.9 mmol/L (21.0-32.0); Chloride 97 mmol/L (98-107); Estimated GFR (African America >60 (>=60 mL/min/1.73m^2); Estimated GFR (Non-African Ame >60 (>=60 mL/min/1.73m^2); Glucose 154 mg/dL (74-106); Potassium 4.3 mmol/L (3.5-5.1); Sodium 139 mmol/L (136-145)
--- NOTE | 2024-10-29 08:08 | P.DS_ITS ---
DS: Providers Provider Date of admission: 10/26/24 12:20 Primary care physician: Non-Staff Physician, Consults: 10/27/24 Occupational Therapy Eval and Treat Routine Reason for consultation: weakness Physical Therapy Eval and Treat Routine Reason for consultation: weakness DS: Diagnosis Discharge Diagnosis (1) Syncope: Qualifiers: Syncope type: unspecified Qualified Code(s): R55 - Syncope and collapse (2) Unresponsiveness: (3) Hypertension: Qualifiers: Hypertension type: primary hypertension Qualified Code(s): I10 - Essential (primary) hypertension (4) JUNG (obstructive sleep apnea): (5) BMI 50.0-59.9, adult: (6) Diabetes mellitus: Qualifiers: Diabetes mellitus type: type 2 Diabetes mellitus skilled nursing insulin use: without drama teacher use Diabetes mellitus complication status: without complication Qualified Code(s): E11.9 - Type 2 diabetes mellitus without complications (7) Chronic hypoxic respiratory failure, on home oxygen therapy: Plan As listed above and others that are not listed DS: Summary Hospital Course Hospital Course: Mrs. Altamirano is a 74-year-old female who was brought to the emergency room after she became unresponsive. Transient loss of consciousness. Sleep apnea, noncompliance with using CPAP in fact patient threw her CPAP machine in the garbage. Could be related to a sleep apnea, hypercapnic episode. CAT scan of the head does not show any acute intracranial process. Carotid ultrasound does not show any significant carotid stenosis No neurological deficit to suggest acute ischemic CVA. Alternatively, patient could have had nonconvulsive seizure with a postictal state. No significant metabolic derangement seen on her blood work. Continue CPAP. Insurance company would not approve CPAP machine without sleep study that could not be done in the inpatient setting. We were able to get this to use the CPAP machine for her. Her daughter paid [id number] for the machine May need to follow-up with neurology. May need to have an EEG. Telemetry monitoring does not show any cardiac dysrhythmia that with cause syncopal episode. May require to have Holter monitor in the outpatient setting Echocardiogram rule out significant valvular disease or cardiomyopathy. Echocardiogram came back negative for significant valvular disease or cardiomyopathy to explain to contribute to her loss of consciousness. If patient experience future episode of diminished responsiveness or unresponsiveness I would certainly recommend then for patient to have an EEG and Holter monitor to be arranged by PCP in the outpatient setting Acute on chronic hypoxic respiratory failure Acute on chronic diastolic heart failure Obstructive sleep apnea Obesity with suspicion of restrictive lung disease. Patient states that she has both COPD and asthma. She smoked for 20 years in the past. She quit 4 years ago. Patient uses 2 L at home but over the last 24 hours her oxygen requirement was increased to 4 L yesterday but today is down to 2 L Chest x-ray showed vascular congestion. Requested the BNP. Requested TSH. BMP came back normal. TSH is slightly elevated. Patient is on Synthroid already. Additional diuretics. Patient thus far is 5 L negative balance I recommend another PFT in the outpatient setting. Recommend follow-up with the pulmonary. Patient will be arranged to have CPAP machine to use at home until her sleep study is completed. Patient will pay [id number] for the CPAP machine until it gets approved after sleep study. Patient may need additional pulmonary testing in the outpatient setting including but not limited to PFTs as listed above as well as CAT scan imaging of the chest. Pulmonary team at [facility] would not accept to see patient unless referral is made by PCP. This will be addressed by PCP. Requested D-dimer and if positive proceed with the CT of the chest. D-dimer is negative. Losartan have been decreased down to 50 mg daily to allow for additional diuretic use. Recommended BMP to be done at PCPs office when patient sees him within 7 days. That is to monitor electrolytes and kidney function. Hypertension hypothyroidism Continue preadmission home medications Losartan have been decreased down to 50 mg daily to allow for additional diuretics use Morbid obesity Diet, exercise and lifestyle modification. Consider the use of GLP or gastric bypass. To be arranged in the outpatient setting. Anxiety. Requested anxiety medication. Avoid benzodiazepine due to her sleep apnea and chronic hypoxic respiratory failure. I started patient on BuSpar. Chronic medical conditions not listed above, incidental findings seen on labs and imaging. These would need to be addressed. Could be addressed when time and condition are appropriate. Could be addressed in the outpatient setting by PCP collaboration with other needed outpatient providers. Patient has multiple complex medical issues as listed above and others that are not listed. All appear to be stable. Patient is feeling great and requesting to be discharged home since yesterday. This time, I do not have any clear or strong clinical justification to extend inpatient hospitalization. Patient however will require close and frequent monitoring as well as additional work- up, investigation and therapeutic intervention that could take place from this point on post discharge. That is to prevent relapse, decompensation, rehospitalization and other medical implications. I instructed patient to ask her primary care doctor to obtain [facility] record entirely to address abnormalities seen on labs and imaging that I have and have not addressed during this hospitalization, follow-up on pending blood work, imaging and pathology is if available and to follow-up on needed medical care in the outpatient setting. Time Spent with Patient Time attestation: Total time spent providing and/or coordinating discharge services: Exam Constitutional Vital Signs, click to edit/add: Last Vital Signs Temp 97.7 F 10/29/24 07:34 Pulse 81 10/29/24 07:56 Resp 16 10/29/24 07:34 BP 140/80 10/29/24 07:34 Pulse Ox 92 L 10/29/24 07:34 O2 Del Method Nasal Cannula 10/29/24 07:34 O2 Flow Rate 3 10/29/24 07:34 FiO2 35 10/29/24 05:25 DS: Data Data Completed and Pending Labs on day of discharge: Labs from last 24 hours 10/29/24 10/28/24 05:25 12:33 D-Dimer 0.50 Sodium 139 Potassium 4.3 Chloride 97 L Carbon Dioxide 40.9 H Anion Gap 5.4 BUN 17.0 Creatinine 0.65 Est GFR ( Amer) >60 Est GFR (Non-Af Amer) >60 BUN/Creatinine Ratio 26.2 Glucose 154 H Calcium 9.1 NT-Pro-B Natriuret Pep 93.0 TSH 8.158 H Discharge Plan Discharge Disposition: Home, Self-Care Condition: Good Discharge Medications: New sennosides-docusate sodium [Senna Plus] 8.6-50 mg Tablet 1 tab PO BID PRN (Reason: Constipation) Qty: 60 0RF aspirin 81 mg Tablet,Chewable 81 mg PO QD Qty: 60 2RF albuterol sulfate 90 mcg/actuation HFA aerosol inhaler 2 inh inhalation Q8H PRN (Reason: shortness of breath or wheezing) Qty: 8.5 2RF spironolactone [Aldactone] 25 mg tablet 25 mg PO DAILY Qty: 30 2RF buspirone 10 mg tablet 10 mg PO BID PRN (Reason: anxiety) Qty: 60 1RF Continued baclofen 10 mg tablet 10 mg PO Q8H PRN (Reason: MUSCLE SPASMS) Breztri Aerosphere 160-9-4.8 mcg/actuation HFA aerosol inhaler 1 inh INHALATION DAILY esomeprazole magnesium 40 mg capsule,delayed release(DR/EC) 40 mg PO Q24H levothyroxine 137 mcg tablet 137 mcg PO DAILY montelukast 10 mg tablet 10 mg PO DAILY furosemide [Lasix] 40 mg tablet 40 mg PO DAILY meloxicam 15 mg tablet 15 mg PO DAILY PRN (Reason: pain) pravastatin 20 mg tablet 20 mg PO DAILY Changed trazodone 150 mg tablet 75 mg PO HS Qty: 0 0RF losartan 100 mg tablet 50 mg PO DAILY Qty: 0 0RF Print Language: Sinhala Patient Instructions: Near Syncope (DC) Activity Restrictions/Additional Instructions: I may not have addressed or treated all of your medical illnesses or the abnormal blood work or imaging studies during this hospitalization. Please ask your primary care provider to obtain [facility] records entirely to follow up on all of the abnormal physical, laboratory, and imaging findings that I have not addressed. Please return back to the emergency room or seek medical attention if your symptoms worsen or return. Please use your oxygen Please use CPAP machine Please follow-up with the sleep study. Your blood pressure medications have been changed. You may need to have additional adjustment of your blood pressure medication to be handled by your primary care doctor to keep your blood pressure within acceptable range. I would recommend a blood test called BMP to be done at your primary care doctor's office next time you see him. Please communicate this to him. Discharging you from [facility] does not mean that your medical care ends here and now. You may still need additional monitoring, work up, investigation, and treatment plan to be handled from this point on by out patient providers including your primary care provider and specialists. For any medication question, please contact your retail pharmacist or your primary care provider. Thank you. Forms: Portal Instructions Follow Up Appointments: Follow up appointment with Dr. Negro Morales Sunday10/31/2024 at 1:15pm Address:[address] [facility] Please bring insurance card and ID
--- NOTE | 2024-10-29 08:51 | CM.NOTE ---
Notified Dr. Morales's office of Hospitalist recommendations for office visit on Thursday, October 31, 2024. Nurse @ Dr. Morales's office notes in chart for Dr. Morales to review.
--- NOTE | 2024-10-29 09:08 | SWNOTE1 ---
MORENA called pt's daughter to update her of discharge today. MORENA did let daughter know that the script for CPAP was sent to [facility] and she will just need to call the number SW provided to coordinate payment for CPAP. MORENA let daughter know that [address] will be calling within 48 hours of discharge as well. Daughter is aware of follow up with new PCP, Dr. Morales, on Sunday. Daughter will work on transport and MORENA reminded daughter to have whoever picks her up bring oxygen with them to get pt home. No further questions/needs at this time. MORENA faxed dc med rec, CRF, and dc summary to [address] Daughter was also provided with phone number to sleep lab.
[2024-10-29] MEDS: FUROSEMIDE 40 MG TABLET PO (09:31)
[2024-10-29] MEDS: ENOXAPARIN SODIUM 40 MG/0.4 ML SYRINGE SUBQ (09:31)
[2024-10-29] MEDS: LOSARTAN POTASSIUM 50 MG TABLET PO (09:31)
[2024-10-29] MEDS: PANTOPRAZOLE SODIUM 40 MG TABLET.DR PO (09:31)
[2024-10-29] MEDS: ASPIRIN 81 MG TAB.CHEW PO (09:31)
[2024-10-29] MEDS: MONTELUKAST SODIUM 10 MG TABLET PO (09:31)
--- NOTE | 2024-10-29 14:32 | NUTR.NU ---
Pt was admitted 10/26/24 w/dx syncope, CRF, HTN, DM2, peripheral edema. PO intakes of regular diet are consistently 100%. BG readings range from 101-154; Na+ levels have remained WNL throughout hospitalization. No dietary recommendations at this time. Will continue to follow PRN.
--- NOTE | 2024-10-30 14:54 | CM.DCFOLLOWU ---
Person spoke with: Myriam How are you feeling? Much better How is your pain? No pain Did you understand your discharge instructions? Yes Do you have any questions about your discharge instructions? No Were you given any prescriptions at discharge? Yes Were you able to get your prescriptions filled? I am picking them up today Do you understand how to take your medications as ordered? Yes Do you have any questions about your follow up appointment and do you plan to keep your follow up appointment? I see Dr. Morales tomorrow and plan on going to appointment Is there anything else that you would like to discuss? No Questions/Comments/Concerns/Other:
== END 2024-10-29 12:35 | disposition home health service (06) | DRG 154 ==
LOC: ER 10-26 00:50 → MS 10-26 04:35
PROVIDERS: Admitting Provider Internal Medicine; Emergency Provider Student in an Organized Health Care Education/Training Program; Visit Provider Hospitalist
DX: G47.33 Obstructive sleep apnea (adult) (pediatric) (principal); I50.33 Acute on chronic diastolic (congestive) heart failure; J96.21 Acute and chronic respiratory failure with hypoxia; E87.3 Alkalosis; Z68.43 Body mass index [BMI] 50.0-59.9, adult; R56.9 Unspecified convulsions; E66.01 Morbid (severe) obesity due to excess calories; E11.9 Type 2 diabetes mellitus without complications; I45.10 Unspecified right bundle-branch block; J44.89 Other specified chronic obstructive pulmonary disease; Z79.890 Hormone replacement therapy; Z79.899 Other long term (current) drug therapy; Z99.81 Dependence on supplemental oxygen; Z91.199 Patient's noncompliance with other medical treatment and regimen due to unspecified reason; I11.0 Hypertensive heart disease with heart failure; F41.9 Anxiety disorder, unspecified; Z87.891 Personal history of nicotine dependence; Z82.49 Family history of ischemic heart disease and other diseases of the circulatory system
CPT/HCPCS: 36415; 70450; 70470; 71045; 80048; 83036; 83735; 83880; 84443; 84484; 85025; 85378; 93005; 93306; 93880; 94640; 94660; 94761; 97116; 97161; 97165; 97530; 97535; 99285; J1100; J1650; J1938; Q9967

== ENCOUNTER 2024-11-06 09:06 | Outpatient (OUT) | payer MEDICARE, SELFPAY ==
[2024-11-06 09:41] LABS: Hematocrit 34.3 % (36.0-48.0); Hemoglobin 10.5 g/dL (12.0-16.0); Immature Granulocytes Abs Auto 0.04 10^3/uL (0.00-0.03); Immature Granulocytes Pct Auto 0.5 % (0.0-0.5); Lymphocytes Absolute Auto 1.2 10^3/uL (1.2-3.8); Mean Corpuscular HGB Conc 30.6 g/dL (29.9-35.2); Mean Corpuscular Hemoglobin 29.6 pg (26.7-34.0); Mean Corpuscular Volume 96.6 fL (81.0-99.0); Platelet Count 255 10^3/uL (150-450); Red Blood Count 3.55 10^6/uL (4.20-5.40); White Blood Count 7.4 10^3/uL (4.0-11.0)
[2024-11-06 10:48] LABS: Alanine Aminotransferase 17 U/L (14-59); Albumin Globulin Ratio 0.7; Albumin Level 2.8 g/dL (3.4-5.0); Alkaline Phosphatase 76 U/L (46-116); Anion Gap 5.0; Aspartate Amino Transferase 14 U/L (15-37); Blood Urea Nitrogen 18.0 mg/dL (7.0-18.0); Calcium 8.7 mg/dL (8.5-10.1); Carbon Dioxide 35.5 mmol/L (21.0-32.0); Chloride 104 mmol/L (98-107); Cholesterol 161 mg/dL (<=200); Estimated GFR (African America >60 (>=60 mL/min/1.73m^2); Estimated GFR (Non-African Ame 56 (>=60 mL/min/1.73m^2); Free T3 2.04 pg/mL (2.18-3.98); Globulin 4.1 g/dL; Glucose 95 mg/dL (74-106); HDL Cholesterol 74 mg/dL (40-60); NT Pro B Type Natriuretic Pept 94.0 pg/mL (<=900.0); Potassium 4.5 mmol/L (3.5-5.1); Sodium 140 mmol/L (136-145); Thyroid Stimulating Hormone 9.759 uIU/mL (0.358-3.740); Total Protein 6.9 g/dL (6.4-8.2); Triglycerides 78 mg/dL (<=150); VLDL CHOLESTEROL 15.6 mg/dL
[2024-11-06 11:17] LABS: Iron 32.0 ug/dL (50.0-170.0)
== END 2024-11-06 09:07 | disposition home or self-care (01) ==
LOC: LAB 09:08
PROVIDERS: PCP Family Medicine; Visit Provider Family Medicine
DX: E03.9 Hypothyroidism, unspecified (principal); J44.9 Chronic obstructive pulmonary disease, unspecified; G47.30 Sleep apnea, unspecified; K21.9 Gastro-esophageal reflux disease without esophagitis; F41.9 Anxiety disorder, unspecified; E78.5 Hyperlipidemia, unspecified; R73.09 Other abnormal glucose; D64.9 Anemia, unspecified; R53.83 Other fatigue; E55.9 Vitamin D deficiency, unspecified; I11.0 Hypertensive heart disease with heart failure; I50.30 Unspecified diastolic (congestive) heart failure
CPT/HCPCS: 36415; 80053; 80061; 82306; 83036; 83540; 83880; 84436; 84443; 84481; 85025

== ENCOUNTER 2025-01-01 11:12 | Outpatient (OUT) | payer MEDICARE, OTHER, SELFPAY ==
--- OUTSIDE RECORDS SUMMARY | 2025-01-01 11:24 | XMS_ITS | Clinical Summary ---
Author Organization [facility] Address [address] [place] [address] Phone Care Team Providers Care Duct Layer Supervisor Name Role Phone LakeheadJohn mccarty Primary Care Provider Allergies Active Allergy Reactions Criticality Noted Date Comments Penicillins Hives 09/18/2023 Sulfa (Sulfonamide Antibiotics) Hives 04/2023 Medications montelukast (Singulair) 10 mg tablet Take 1 tablet (10 mg) by mouth once daily at bedtime. Active esomeprazole (NexIUM) [address] capsule Take 1 capsule (40 mg) by mouth once daily in the morning. Take before meals. Do not open capsule. Active furosemide (Lasix) 40 mg tablet Take 1 tablet (40 mg) by mouth once daily. Active cetirizine (ZyrTEC) 10 mg chewable tablet Chew 1 tablet (10 mg) once daily. Active losartan (Cozaar) 100 mg tablet Take 1 tablet (100 mg) by mouth once daily. Active budesonide-glyc opyr-formoterol (Breztri Aerosphere) 160-9-4.8 mcg/actuation HFA aerosol inhaler Inhale 2 puffs 2 times a day. Active fluticasone (Flonase) 50 mcg/actuation nasal spray Administer 2 sprays into each nostril 2 times a day. Shake gently. Before first use, prime pump. After use, clean tip and replace cap. Active levothyroxine (Tirosint) 137 mcg capsule Take 1 capsule (137 mcg) by mouth early in the morning.. Take on an empty stomach at the same time each day, either 30 to 60 minutes prior to breakfast Active baclofen (Lioresal) 10 mg tablet Take 1 tablet (10 mg) by mouth 3 times a day. Active traZODone (Desyrel) 150 mg tablet Take 1 tablet (150 mg) by mouth once daily at bedtime. Active Active Problems Problem Noted Date Diagnosed Date BMI 50.0-59.9, adult 09/18/2023 Essential hypertension 09/18/2023 Other chest pain 09/18/2023 Shortness of breath 09/18/2023 Unresponsive episode 09/18/2023 Syncopal episodes 09/18/2023 Sleep apnea 09/18/2023 Family History Medical History Relation Name Comments Heart disease Father valve replacement Father Heart disease Mother triple bypass Mother Relation Name Status Comments Father Mother Social History Tobacco Use Types Packs/Day Years Used Date Smoking Tobacco: Former Cigarettes Smokeless Tobacco: Never Tobacco Cessation:Counseling Given: Not Answered Alcohol Use Standard Drinks/Week Comments Never 0 (1 standard drink = 0.6 oz pur e alcohol) Comments Unknown Sex and Gender Information Value Date Recorded Sex Assigned at Female 09/18/2023 8:25 AM EDT Legal Sex Female 9:49 AM EST Gender Identity Female 09/18/2023 8:25 AM EDT Sexual Orientation Straight 09/18/2023 8: 25 AM EDT Last Filed Vital Signs Vital Sign Reading Time Taken Comments Blood Pressure 118/82 11/27/2023 11:49 AM EDT Pulse 69 11/27/2023 11:49 AM EDT Temperature - - Respiratory Rate - - Oxygen Saturation - - Inhaled Oxygen Concentration - - Weight 140 kg (309 lb) 09/18/2023 10:41 AM EDT Height 157.5 cm (5' 2 ) 09/18/2023 10:41 AM EDT Body Mass Index 56.52 09/18/2023 10:41 AM EDT Plan of Treatment Health Maintenance Due Date Last Done Comments CT Colonography 1950 Creatinine Level 1950 FIT-DNA (Cologuard) 1950 FIT 1950 Lipid Panel 1950 Medicare Annual Wellness Visit (AWV) 1950 Potassium Level 1950 Sigmoidoscopy 1950 MMR Vaccines (1 of 1 - Standard series) 06/16/1952 Diabetes Screening 06/16/1969 Hepatitis C Screening 06/16/1969 Hepatitis A Vaccines (1 of 2 - Risk 2-dose series) 06/16/1970 Hepatitis B Vaccines (1 of 3 - Risk 3-dose series) 2011 RSV High Risk: (Elderly (60+) or Population) (1 - Risk 60-74 years 1-dose series) 2011 Zoster Vaccines (2 of 3) 03/16/2017 01/19/2017 Pneumococcal Vaccine (3 of 3 - PCV20 or PCV21) 12/20/2021 12/20/2016, 05/17/2016 Echocardiogram 04/14/2023 04/14/2022 TSH Level 05/16/2024 05/17/2023 Mammogram 07/04/2024 07/05/2023, 06/17, 07/04/2022, Additional history exists Influenza Vaccine (#1) 2024 , 01/09/2019, 01/08/2018, Additional history exists COVID-19 Vaccine (2024- season) 2024 12/23/2021, 01/28/2021, 06/22/2020, Additional history exists Bone Density Scan 07/04/2025 07/05/2023, 07/05/2023 DTaP/Tdap/Td Vaccines (2 - Td or Tdap) 12/20/2026 12/20/2016 Colonoscopy 12/05/2027 12/04/2017 Colorectal Cancer Screening 12/05/2027 HIB Vaccines Aged Out No longer eligi ble based on patient's age to complete this topic HPV Vaccines Aged Out No longer eligi ble based on patient's age to complete this topic IPV Vaccines Aged Out No longer eligi ble based on patient's age to complete this topic Meningococcal Vaccine Aged Out No sofia hemalatha eligible based on patient's age to complete this topic Rotavirus Vaccines Aged Out No longer eligible based on patient's age to complete this topic Insurance [employer] MEDICARE [employer] MEDICARE Care Teams Duct Layer Supervisor Relationship Specialty Start Date End Date John Jama DO [address] [address] PCP - General 09/18/23
--- OUTSIDE RECORDS SUMMARY | 2025-01-01 11:24 | XMS_ITS | Patient Health Record ---
Author Organization [facility] Address [address] [place] [address] Care Team Providers Care Mechanical Development Engineer Name Role Phone Luis Manuel Alvarenga Unavailable [phone] Allergies Allergen (clinical drug ingredient) Drug/Non Drug Allergy documented on EMR Reaction Allergy Type Onset Date Status Adhesive Tape (uncoded) Unknown Allergy Active BANDAID (uncoded) Unknown Allergy Ac tive Latex Latex (uncoded) Unknown Allergy Acti ve sulfa (uncoded) Unknown Allergy Acti ve penicillin Unknown Drug Allergy Active Reason For Referral No Information Medications Medication SIG (Take, Route, Frequency, Duration) Notes Start Date End Date Status Senna Active esomeprazole Active losartan Active OLANZapine Active DULoxetine Active loratadine Not-Takin g Cepacol Sore Throat Active lidocaine topical Ac tive busPIRone Not-Taking levothyroxine Active nystatin topical 899720 units/g applied topically Active Breo Ellipta Active Lasix Active montelukast Active Tylenol Active Artificial Tears Act ayaka meloxicam Not-Taking Social History Tobacco Use: Social History Observation Description Date Details (start date - stop date) Never Smoker NA - NA Smoking History Question Answer Notes Smoking Status NonSmoker Problems Problem Type SNOMED Code ICD Code Onset Dates Problem Status W/U Status Risk Notes Problem [id number] Closed 3-part fracture of proximal end of left humerus, initial encounter (S42.292A) Active confirmed Problem Closed 3-part fracture of proximal end of left humerus with routine healing (S42.292D) Active confirmed Plan Of Treatment No Information Insurance Providers Payer Name Payer Address Payer Phone Subscriber Number Group Number Insured Name Patient Relationship to Insured Coverage Start Date Coverage End Date [place] [address] [place] [address] [id number] Myriam Altamirano Self - patient is the insured Long-Term Facility-T c Claims Only [place] SHAYNE ANDERSON Myriam Altamirano Self - patient is the insured Medical (General) History Medical History History ICD Code Asthma/COPD Yes Respiratory problems: Yes Lung Disease: Yes Anesthetic Reactions Yes Hypothyroidism Yes High Blood Pressure: Yes Depression: Yes Mental Illness: Yes Anxiety: Yes CPAP Machine: Yes Latex Allergy Yes Drug Allergies: Yes Surgical History Surgery Date(Month/Year)
--- OUTSIDE RECORDS SUMMARY | 2025-01-01 11:24 | XMS_ITS | Encounter Summary ---
Author Organization [facility] Address [id number] [address] [place] [address] Care Team Providers Care Commuter Train Operator Name Role Phone Magalie Blanca DO Primary Care Provider Encounter Details Date Type Department Care Team (Late st Contact Info) Description 06/21/2018 Telephone [facility] [address] [place] [address] Lindsay Banegas, ROULA Social History Tobacco Use Types Packs/Day Years Used Date Smoking Tobacco: Former Cigarettes 1 30 1 [birth year]06/1956 - 03/05/1987 Smokeless Tobacco: Never Alcohol Use Standard Drinks/Week Comments Yes 0 (1 standard drink = 0.6 oz pur e alcohol) social on holidays Childcare Answer Date Recorded Childcare Unknown 06/12/2018 Employment Answer Date Recorded Employment Unknown 06/12/2018 Comments No Sex and Gender Information Value Date Recorded Sex Assigned at Not on file Legal Sex Female 11:42 AM EDT Gender Identity Not on file Sexual Orientation Not on file documented as of this encounter Plan of Treatment Not on file documented as of this encounter Visit Diagnoses Not on filedocumented in this encounter Additional Health Concerns Infection Onset Date Last Indicated Resolved Time COVID-19 Rule-Out 10/10/2019 10/10/2019 10/11/2019 10:39 PM EDT COVID-19 Rule-Out 02/23/2021 02/23/2021 02/23/2021 10:53 PM EST COVID-19 Rule-Out 04/12/2022 04/12/2022 04/12/2022 9:48 PM EST documented as of this encounter Care Teams Commuter Train Operator Relationship Specialty Start Date End Date Magalie Blanca DO [address] [place] [address] PCP - General Family Medicine 05/18/20 04/11/22 documented as of this encounter
--- OUTSIDE RECORDS SUMMARY | 2025-01-01 11:24 | XMS_ITS | Encounter Summary ---
Author Organization [facility] Address [id number] [address] [place] [address] Care Team Providers Care Wraparound Facilitator Name Role Phone Magalie Blanca DO Primary Care Provider [phone] Encounter Details Date Type Department Care Team (Late st Contact Info) Description 09/29/2020 Orders Only [facility] [address] [place] [address] External, Scanning Provider Social History Tobacco Use Types Packs/Day Years Used Date Smoking Tobacco: Former Cigarettes 1 30 0 05/20/1972 - 05/20/2002 Smokeless Tobacco: Never Alcohol Use Standard Drinks/Week Comments Yes 0 (1 standard drink = 0.6 oz pur e alcohol) social on holidays Childcare Answer Date Recorded Childcare Unknown 08/26/2018 Employment Answer Date Recorded Employment Unknown 08/26/2018 Purpose - Life Answer Date Recorded Purpose and direction in life Unknown Comments No Sex and Gender Information Value Date Recorded Sex Assigned at Not on file Legal Sex Female 11:42 AM EDT Gender Identity Not on file Sexual Orientation Not on file documented as of this encounter Plan of Treatment Not on file documented as of this encounter Procedures Procedure Name Priority Date/Time Associated Diagnosis Comments BASIC METABOLIC PANEL Routine 08/30/2020 documented in this encounter Results * Basic Metabolic Panel (08/30/2020) us Scanning Provider External LAB BLOOD ORDERABLES Final Result MANUALLY TRANSCRIBED RESULTS documented in this encounter Visit Diagnoses Not on filedocumented in this encounter Additional Health Concerns Infection Onset Date Last Indicated Resolved Time COVID-19 Rule-Out 02/23/2021 02/23/2021 02/23/2021 10:53 PM EST COVID-19 Rule-Out 04/12/2022 04/12/2022 04/12/2022 9:48 PM EST documented as of this encounter Care Teams Wraparound Facilitator Relationship Specialty Start Date End Date Magalie Blanca DO [address] [place] [address] PCP - General Family Medicine 05/18/20 04/11/22 documented as of this encounter
--- OUTSIDE RECORDS SUMMARY | 2025-01-01 11:24 | XMS_ITS | Encounter Summary ---
Author Organization [facility] Address [address] [place] [address] Phone Care Team Providers Care Forklift Truck Operator Name Role Phone John Jama DO Primary Care Provider [phone] Encounter Details Date Type Department Care Team (Late st Contact Info) Description 11/06/2023 Scanned Document [facility] [address] [place] [id number] Scanning, Generic Provider Social History Tobacco Use Types Packs/Day Years Used Date Smoking Tobacco: Former Cigarettes Smokeless Tobacco: Never Alcohol Use Standard Drinks/Week Comments Never 0 (1 standard drink = 0.6 oz pur e alcohol) Comments Unknown Sex and Gender Information Value Date Recorded Sex Assigned at Female 09/18/2023 8:25 AM EDT Legal Sex Female 9:49 AM EST Gender Identity Female 09/18/2023 8:25 AM EDT Sexual Orientation Straight 09/18/2023 8: 25 AM EDT documented as of this encounter Plan of Treatment Not on file documented as of this encounter Procedures Procedure Name Priority Date/Time Associated Diagnosis Comments OUTSIDE IMAGING SCAN 11/06/2023 documented in this encounter Results * OUTSIDE IMAGING SCAN (11/06/2023) Anatomical Region Laterality Modality Other Narrative 11/06/2023 Ordered by an unspecified provider. us Generic Provider Scanning OUTSIDE SCAN Final Result documented in this encounter Visit Diagnoses Not on filedocumented in this encounter Additional Health Concerns Assessment Noted Time A fall risk assessment has been complete d for the patient 09/18/2023 10:40 AM EDT documented as of this encounter Care Teams Forklift Truck Operator Relationship Specialty Start Date End Date John Jama DO [address] [place] [id number] PCP - General 09/18/23 documented as of this encounter
--- OUTSIDE RECORDS SUMMARY | 2025-01-01 11:24 | XMS_ITS | Encounter Summary ---
Author Organization [facility] Address [address] [place] [address] Care Team Providers Care Hand Stitcher Name Role Phone John Jama DO Primary Care Provider [phone] Negro Morales MD Primary Care Provider [phone] Encounter Details Date Type Department Care Team (Late st Contact Info) Description 07/29/2024 Abstract [facility] [address] [place] [phone] John Jama DO [address] [place] [address] Social History Tobacco Use Types Packs/Day Years Used Date Smoking Tobacco: Former Cigarettes 1 49.8 0 07/21/1972 - 05/19/2002 Cigars Smokeless Tobacco: Never Comments:When i began just a few a pack lasted a week Alcohol Use Standard Drinks/Week Comments Not Currently 0 (1 standard drink = 0.6 oz pure alcohol) Maybe to celebrate a holiday 2 Social Connection and Isolation Panel Answer Date Recorded In a typical week, how many times do you talk on the phone with family, friends, or neighbors? Three times a week 08/20/19 How often do you get togethe r with friends or relatives? Three times a week 08/20/2023 How often do you attend chur ch or pentecostal services? 1 to 4 times per year 08/20/2023 Do you belong to any clubs o r organizations such as mormon groups, unions, fraternal or athletic groups, or school groups? No 08/20/2023 How often do you attend meet ings of the clubs or organizations you belong to? Never 08/20/2023 Are you , , di vorced, , never , or living with a partner? 08/20/2023 AUDIT-C Answer Date Recorded Q1: How often do you have a drink containing alcohol? Patient declined 08/20/2023 Q2: How many drinks containi ng alcohol do you have on a typical day when you are drinking? Patient does not drink Q3: How often do you have si x or more drinks on one occasion? Never 08/20/2023 Overall Financial Resource Strain (CARDIA) Answe r Date Recorded How hard is it for you to pa y for the very basics like food, housing, medical care, and heating? Not hard at all 08/20/2023 PHQ-2 Answer Date Recorded Patient Health Questionnaire-2 Score 0 07/25/2024 [facility] - Occupational Stress Questionnaire Answer Date Recorded Do you feel stress - tense, restless, nervous, or anxious, or unable to sleep at night because your mind is troubled all the time - these days? Only a little 08/20/2023 Exercise Vital Sign Answer Date Recorde d On average, how many days pe r week do you engage in moderate to strenuous exercise (like a brisk walk)? 0 days 08/20/2023 On average, how many minutes do you engage in exercise at this level? 0 min 08/20/2023 Hunger Vital Sign Answer Date Recorded Within the past 12 months, y ou worried that your food would run out before you got the money to buy more. Never true 08/20/19 24 Within the past 12 months, t he food you bought just didn't last and you didn't have money to get more. Never true 08/20/2023 PRAPARE - Transportation Answer Date Re corded In the past 12 months, has l ack of transportation kept you from medical appointments or from getting medications? No 05/2023 In the past 12 months, has l ack of transportation kept you from meetings, work, or from getting things needed for daily living? No 08/20/2023 Housing Stability Vital Sign Answer Sudarshan e Recorded In the last 12 months, was t here a time when you were not able to pay the mortgage or rent on time? No 08/20/2023 In the last 12 months, how many places have you lived? 0 08/20/2023 In the last 12 months, was t here a time when you did not have a steady place to sleep or slept in a fpc (including now)? No 08/20/2023 Comments Unknown Sex and Gender Information Value Date Recorded Sex Assigned at Not on file Legal Sex Female 7:03 PM EDT Gender Identity Not on file Sexual Orientation Not on file documented as of this encounter Plan of Treatment Not on file documented as of this encounter Goals Goal Patient Goal Type Associated Problems Recent Progress Patient-Stated? Author Help patient manage antidepressant medication Care Plan Patient on antidepressant monitoring plan No Amanda Panchal MA documented as of this encounter Visit Diagnoses Not on filedocumented in this encounter Additional Health Concerns Active Problems Noted Date Diagnosed Date Patient on antidepressant monitoring plan 2024 Assessment Noted Time PHQ-9 Depression Total Score: 0 07/26/19 25 11:19 AM EDT documented as of this encounter Care Teams Hand Stitcher Relationship Specialty Start Date End Date John Jama DO [address] [facility] [address] [place] [address] PCP - General Family Medicine 08/22/23 10/29/24 Negro Morales MD [address] [facility] [place] [address] PCP - General Family Medicine 10/30/24 documented as of this encounter
--- OUTSIDE RECORDS SUMMARY | 2025-01-01 11:24 | XMS_ITS | Encounter Summary ---
Author Organization [facility] Address [address] [place] [address] Care Team Providers Care Sports Umpire Name Role Phone John Jama DO Primary Care Provider + [phone] Negro Morales MD Primary Care Provider [phone] Encounter Details Date Type Department Care Team (Late st Contact Info) Description 11/09/2023 Abstract [facility] [address] [place] [phone] John Jama DO [address] [place] [address] Social History Tobacco Use Types Packs/Day Years [...] often do you attend chur ch or anglican services? 1 to 4 times per year 08/20/2023 Do you belong to any clubs o r organizations such as episcopal groups, unions, fraternal or athletic groups, or [...] Date Recorded Patient Health Questionnaire-2 Score 0 11/06/2023 [facility] - Occupational Stress Questionnaire Answer Date Recorded [...] place to sleep or slept in a half-way (including now)? No 08/20/2023 Comments Unknown Sex [...] encounter Additional Health Concerns Assessment Noted Time PHQ-9 Depression Total Score: 0 09/10/19 24 9:00 AM EDT documented as of this encounter Care Teams Sports Umpire Relationship Specialty Start Date End Date John Jama DO [address] [address] PCP - General Family Medicine 08/22/23 10/29/24 Negro Morales MD [address] [place] [address] PCP - General Family Medicine 10/30/24 documented as of this encounter
--- OUTSIDE RECORDS SUMMARY | 2025-01-01 11:24 | XMS_ITS | Encounter Summary ---
Author Organization [facility] [employer] [facility] tem Address [id number] [address] [place] [address] Care Team Providers Care Laborer Pullet Farm Name Role Phone Magalie Blanca DO Primary Care Provider Reason for Visit * Reason Onset Date Comments rescheduled appoinment 06/28/2018 Encounter Details Date Type Department Care Team (Late st Contact Info) Description 06/28/2018 Telephone [facility] [address] [place] [address] Shanon Lares CNA rescheduled appoinment Social History Tobacco Use Types Packs/Day Years [...] Last Indicated Resolved Time COVID-19 Rule-Out 10/10/2019 10/10/201910/1010/11/2019 10:39 PM EDT COVID-19 Rule-Out 02/23/2021 02/23/2021 02/23/2021 10:53 PM EST COVID-19 Rule-Out 04/12/2022 04/12/2022 04/12/2022 9:48 PM EST documented as of this encounter Care Teams Laborer Pullet Farm Relationship Specialty Start Date End Date Magalie Blanca DO [address] [place] [address] PCP - General Family Medicine 05/18/20 04/11/22 documented as of this encounter
--- OUTSIDE RECORDS SUMMARY | 2025-01-01 11:24 | XMS_ITS | Encounter Summary ---
Author Organization [facility] [employer] [facility] tem Address [id number] [address] [place] [address] Care Team Providers Care Chief Of Field Operations Name Role Phone Magalie Blanca DO Primary Care Provider Encounter Details Date Type Department Care Team (Late st Contact Info) Description 07/30/2018 Telephone [facility] [address] [place] [address] Lindsay Banegas, ROULA Social History [...] documented as of this encounter Care Teams Chief Of Field Operations Relationship Specialty Start Date End Date Magalie Blanca DO [address] [place] [address] PCP - General Family Medicine 05/18/20 04/11/22 documented as of this encounter
--- OUTSIDE RECORDS SUMMARY | 2025-01-01 11:24 | XMS_ITS | Encounter Summary ---
Author Organization [facility] tem Address [id number] [address] [place] [address] Care Team Providers Care Welding Setter Name Role Phone Magalie Blanca DO Primary Care Provider [phone] Reason for Visit * Reason Onset Date Comments reschedule 01/27/2021 Encounter Details Date Type Department Care Team (Late st Contact Info) Description 01/27/2021 [facility]phone [facility] [address] [place] [address] Rhoda Archibald reschedule Social History Tobacco Use Types Packs/Day Years [...] on file documented as of this encounter Miscellaneous Notes * Telephone Encounter - Rhoda Archibald - 01/27/2021 10:35 AM EST Computer Typesetter Keyliner attempted to contact patient to reschedule their appointment with Dr. Ramirez in [place] on 02/01/2021. Computer Typesetter Keyliner left message for patient to contact our office back to reschedule the appointmet. Patient can be switched to a MyChart Video visit on the same day or rescheduled to the next available day. documented in this encounter Plan of Treatment Not on file documented as of this encounter Visit Diagnoses Not on filedocumented in this encounter Additional Health Concerns Infection Onset Date Last Indicated Resolved Time COVID-19 Rule-Out 02/23/2021 02/23/2021 02/23/2021 10:53 PM EST COVID-19 Rule-Out 04/12/2022 04/12/2022 04/12/2022 9:48 PM EST Assessment Noted Time A Body Mass Index follow-up plan has been documented for the patient 11/24/2020 9:06 PM EDT documented as of this encounter Care Teams Welding Setter Relationship Specialty Start Date End Date Magalie Blanca DO [address] [place] [address] PCP - General Family Medicine 05/18/20 04/11/22 documented as of this encounter
--- OUTSIDE RECORDS SUMMARY | 2025-01-01 11:24 | XMS_ITS | Clinical Summary ---
Author Organization [facility] Address [address] [place] [address] Care Team Providers Care Juice Scaleman Name Role Phone Negro Morales MD Primary Care Provider [phone] Allergies Active Allergy Reactions Criticality Noted Date Comments Codeine Palpitations Low 03/05/2017 Hydrocodone Palpitations Low 09/18/2018 Hydrocodone-Acetaminop hen Palpitations,Unknown Low 03/05/2017 Latex 01/14/2024 Other Reaction(s): Unknown Oxycodone Rash Low 09/18/2018 Oxycodone-Acetaminophe n Itching,Unknown 03/05/2017 Penicillins Hives 03/05/2017 Penicillins 10/09/2023 Sulfa Antibiotics Hives,Itching 03/05/2017 Sulfa Antibiotics 10/09/2023 Tramadol Headache 01/02/2021 Other reaction(s): Headache Wound Dressing Adhesive Itching 03/05/2017 Other reaction(s): Unknown Medications ibuprofen 400 MG tablet every 8 (eight) hours. Active fluticasone (Flonase) 50 MCG/ACT nasal sprayIndications:S easonal allergic rhinitis, unspecified trigger Administer 2 sprays into each nostril in the morning and 2 sprays before bedtime. 16 g 11 4 Active esomeprazole (NexIUM) [address] capsuleIndications :Gastroesophageal reflux disease without esophagitis Take 1 capsule (40 mg) by mouth in the morning. Take before meals. 90 capsule 1 4 Active cetirizine (ZyrTEC) 10 MG tablet Take by mouth Active nystatin (Mycostatin) 393055 UNIT/GM powderIndications: Erythema intertrigo Apply to the affected area under the breasts, twice daily when flared or for maintenance, 30 day supply 60 g 11 4 Active pravastatin (Pravachol) 20 MG tabletIndications: Mixed hyperlipidemia Take 1 tablet (20 mg) by mouth Daily 90 tablet 3 4 Active meloxicam (Mobic) 15 MG tabletIndications: Arthritis of knee, right TAKE 1 TABLET BY MOUTH DAILY NEEDED 90 tablet 3 4 Active Breztri Aerosphere 160-9-4.8 MCG/ACT aerosolIndications :Chronic obstructive pulmonary disease with acute exacerbation (HCC) INHALE 2 PUFFS BY MOUTH EVERY 12 HOURS 10.7 g 3 4 Active levothyroxine (Synthroid, Levoxyl) 137 MCG tabletIndications: Acquired hypothyroidism TAKE 1 TABLET BY MOUTH IN THE MORNING 90 tablet 3 4 Active traZODone (Desyrel) 150 MG tabletIndications: Insomnia, unspecified type Take 1 tablet (150 mg) by mouth at bedtime 90 tablet 1 5 Active montelukast (Singulair) 10 MG tabletIndications: Primary hypertension Take 1 tablet (10 mg) by mouth at bedtime 90 tablet 5 Active furosemide (Lasix) 40 MG tabletIndications: Localized edema Take 1 tablet (40 mg) by mouth in the morning. 30 tablet 11 5 026 Active baclofen (Lioresal) 10 MG tabletIndications: Accommodation spasm, bilateral Take 1 tablet (10 mg) by mouth in the morning and 1 tablet (10 mg) in the evening and 1 tablet (10 mg) before bedtime. 30 tablet 5 Active losartan (Cozaar) 100 MG tabletIndications: Primary hypertension Take 1 tablet (100 mg) by mouth Daily 90 tablet 5 Active Active Problems Problem Noted Date Diagnosed Date Primary osteoarthritis of left hip 10/25/2023 Shortness of breath 09/18/2023 Syncopal episodes 09/18/2023 Unresponsive episode 09/18/2023 Benign paroxysmal positional vertigo due to bilateral vestibular disorder 07/20/2023 Neuropathy 07/09/2023 Essential tremor 07/09/2023 Overview (07/09/2023): Patient does have tremor in the bilateral upper extremities at rest and with intention. There is the possibility of subtle bradykinesia in the right upper extremity but I'm not convinced that this is Parkinson's at this time. This does not physically limiting the patient and she is willing to continue to monitor the symptoms and she does not wish treatment for the tremor alone at this time. . PLAN: Monitor clinically Consider primidone in the future DDD (degenerative disc disease), lumbar 07/09/19 24 Overview (07/09/2023): The patient does have mild degenerative disc disease in the lumbar spine which may be limiting her gait somewhat. This confounds and makes difficult instability as a criteria for Parkinson's Cervical disc disease with myelopathy 07/09/2023 Paresthesia 07/09/2023 Depression 12/04/2022 Sleep apnea 12/04/2022 Overview (12/04/2022): uses home O2 2 1/2 L at night. Refuses to uses CPAP Fatty pancreas 12/04/2022 Osteoarthritis involving mul tiple joints on both sides of body 12/04/2022 Osteoarthritis 12/04/2022 (HFpEF) heart failure with preserved ejection fr action 09/11/2022 Asthma 09/07/2022 Overview (07/09/2023): The patient has asthma. With tremor, limited choices patient is not a candidate for treatment such as propranolol. Fatty liver 09/07/2022 Fibromyalgia, primary 09/07/2022 Generalized anxiety disorder 09/07/2022 GERD (gastroesophageal reflux disease) 3 Low back pain 09/07/2022 Major depressive disorder in partial remission 0 09/07/2022 Arthritis of knee, right 03/27/2019 Pain in joint involving pelvic region and thigh 03/27/2019 BMI 50.0-59.9, adult 10/28/2018 Disorder of sacrum 03/05/2017 Lumbosacral spondylosis without myelopathy 03/05 Fibrocystic breast changes 09/27/2016 Mixed incontinence 09/27/2016 Arthralgia of lower leg 04/17/2016 Acquired hypothyroidism 05/07/2013 Anxiety 05/07/2013 Allergic rhinitis due to allergen 02/21/2008 Benign essential hypertension 02/21/2008 Disorder of intervertebral disc of lumbar spine 02/21/2008 Mucopurulent chronic bronchitis 02/21/2008 Overview (12/05/2022): >>OVERVIEW FOR COPD (CHRONIC OBSTRUCTIVE PULMONARY DISEASE) ([facility]) WRITTEN ON 09/07/2022 10:55 AM BY TELMA BOLANOS MA 2 1/2 L O2 at home PRN Generalized osteoarthritis 02/21/2008 Uric acid nephrolithiasis 02/21/2008 COPD (chronic obstructive pulmonary disease) Resolved Problems Problem Noted Date Diagnosed Date Resolved Date Abnormal mammogram 09/07/2022 3 Hypertension 09/07/2022 09/07/2022 Substance abuse 09/07/2022 09/07/2022 Overview (09/07/2022): MARIJUANA Acute on chronic respiratory failure with hypoxemia 04/13/2022 09/07/2022 Community acquired pneumonia of right lower lobe of lung 04/12/2022 09/07/2022 Internal derangement of left shoulder 11/29/2020 09/07/2022 Paresthesia of both hands 11/24/2020 Edema 11/08/2018 09/07/2022 Abnormal nuclear stress test 10/16/2018 09/07/2022 Other chest pain 09/26/2018 09/07/2022 Wound of right leg 06/19/2018 Acute pain of right knee 09/10/2017 Bipolar disorder 02/21/2008 09/07/2022 Encounters Date Type Department Care Team Description 10/30/2024 Patient Outreach [facility] [address] [place] [phone] Funmi Asif LPN 10/22/[address] [facility] [place] [facility] [address] [place] [address] Renee Ordaz MA 10/15/[address] [facility] [place] [facility] [address] [place] [address] John Jama, DO Accommodation spasm, bilateral from Last 3 Months Immunizations Immunization Administration Dates Next Due Influenza, High Dose Seasona l, Preservative Free 01/14/2024,01/09/2019,01/08/2018,01/19 Influenza, High-dose Seasona l, Quadrivalent, Preservative Free 12/21/2021 Influenza, injectable, quadrivalent 12/18/2015 Influenza, injectable, quadr ivalent, preservative free 12/27/2015 Influenza, live, intranasal, quadrivalent 01/03/2018 Moderna Bivalent Booster Vaccination 12/23/2021 Pneumococcal Conjugate PCV 13 12/20/2016 Pneumococcal Conjugate PCV 20 01/14/2024 Pneumococcal Polysaccharide PPSV23 05/17/2016 Tdap 12/20/2016 Zoster, live 01/19/2017 Family History Medical History Relation Name Comments Obesity Brother Osteoarthritis Brother Stroke Father Thomas Altamirano Allergies Mother Dania Gonzalez Asthma Mother Dania Gonzalez Coronary artery disease Mother Dania Gonzalez Osteoarthritis Mother Dania Gonzalez Osteoporosis Mother Dania Gonzalez hearing deficiency Mother Dania Gonzalez Relation Name Status Comments Brother Father Thomas Altamirano Mother Dania Gonzalez Alive Sibling Alive Social History Tobacco Use Types Packs/Day Years Used Date Smoking Tobacco: Former Cigarettes 1 49.8 0 07/21/1972 - 05/19/2002 Cigars Smokeless Tobacco: Never Tobacco Cessation:Counseling Given: Yes Comments:When i began just a few a [...] week 08/20/2023 How often do you attend [facility] or alevism services? 1 to 4 times per year 08/20/2023 Do you belong to any clubs o r organizations such as restorationism groups, unions, fraternal or athletic groups, or [...] Recorded Patient Health Questionnaire-2 Score 0 07/25/2024 [facility] - Occupational Stress Questionnaire Answer Date Recorded [...] place to sleep or slept in a senior living (including now)? No 08/20/2023 Comments Unknown Sex and Gender Information Value Date Recorded Sex Assigned at Not on file Legal Sex Female 7:03 PM EDT Gender Identity Not on file Sexual Orientation Not on file Last Filed Vital Signs Vital Sign Reading Time Taken Comments Blood Pressure 130/70 07/25/2024 11:25 AM EDT Pulse 71 07/25/2024 11:25 AM EDT Temperature 35.7 C (96.2 F) 07/25/2024 11:25 AM EDT Respiratory Rate - - Oxygen Saturation 97% 07/25/2024 11:25 AM EDT Inhaled Oxygen Concentration - - Weight 141 kg (310 lb) 07/25/2024 11:25 AM EDT Height 157.5 cm (5' 2 ) 07/25/2024 11:25 AM EDT Body Mass Index 56.7 07/25/2024 11:25 AM EDT Plan of Treatment Health Maintenance Due Date Last Done Comments CT Colonography 1951 FIT-DNA 1951 FIT 1950 FOBT 1950 Sigmoidoscopy 1950 Mammogram 07/04/2024 07/05/2023, 06/17, 06/22/2022, Additional history exists Influenza Vaccine (#1) 2024 , 12/21/2021, 01/09/2019, Additional history exists Colonoscopy 12/05/2027 12/04/2017, 11/17, 11/29/2017 Colorectal Cancer Screening 12/05/2027 Pneumococcal Vaccine: 65+ Years Completed 01/14/2024, 12/20/2016, 05/17/2016 Goals Goal Patient Goal Type Associated Problems Recent Progress Patient-Stated? Author Help patient manage antidepressant medication Care Plan Patient on antidepressant monitoring plan No Amanda Panchal MA Procedures Procedure Name Priority Date/Time Associated Diagnosis Comments BI MAMMOGRAM DIAGNOSTIC LEFT Routine 07/04/2022 Other abnormal and inconclusive findings on diagnostic imaging of breast COLONOSCOPY Routine 12/04/2017 12:00 PM EDT from Last 3 Months or Most Recently Relevant to Health Maintenance Results * Left diagnostic mammogram (07/04/2022) Anatomical Region Laterality Modality Breast Left Mammography Impressions 07/04/2022 12:00 AM EDT BIRADS 2 : BENIGN FINDINGS, NORMAL INTERVAL FOLLOW UP. FOLLOW-UP: 12 months DENSITY: Fatty MAMMOGRAPHY IS VERY IMPORTANT TO YOUR HEALTH. THE CURRENT [employer] GUIDELINES RECOMMENDS ANNUAL MAMMOGRAPHY BEGINNING AT AGE 41 THIS FACILITY USES A REMINDER SYSTEM TO ENSURE ALL PATIENTS RECEIVE REMINDER NOTIFICATIONS AT THE APPROPRIATE TIME BASED ON THE RECOMMENDATIONS OF THIS EXAM. Board Certified Radiologist. Accredited by the ACR and FDA. Report reported and signed by Ernie Luong on 07/04/2022 1557 Narrative 07/04/2022 12:00 AM EDT PERFORMED AT [facility] LOCATION:[facility] CLINICAL HISTORY: Diagnostic Mammogram COMPARISON: Screening mammogram 06/22/2022. TECHNIQUE: 2D and 3D mammogram imaging of both breasts was performed. RESULT: DENSITY: Almost entirely fatty. Again, focal asymmetry within the left breast near the 12 o'clock position. Ultrasound recommended. On the left breast ultrasound, correlating with the mammogram at the 12 o'clock position, there is a 0.5 x 0.2 x 0.4 cm anechoic cyst, benign. No suspicious findings. Procedure Note CONVERSION, GENERIC - 09/22/2022 PERFORMED AT [facility] LOCATION:[facility] CLINICAL HISTORY: Diagnostic Mammogram COMPARISON: Screening mammogram 06/22/2022. TECHNIQUE: 2D and 3D mammogram imaging of both breasts was performed. RESULT: DENSITY: Almost entirely fatty. Again, focal asymmetry within the left breast near the 12 o'clockposition. Ultrasound recommended. On the left breast ultrasound, correlating with the mammogram at the 12o'clock position, there is a 0.5 x 0.2 x 0.4 cm anechoic cyst, benign. No suspiciousfindings. IMPRESSION: BIRADS 2 : BENIGN FINDINGS, NORMAL INTERVAL FOLLOW UP. FOLLOW-UP: 12 months DENSITY: Fatty MAMMOGRAPHY IS VERY IMPORTANT TO YOUR HEALTH. THE CURRENT [employer] GUIDELINES RECOMMENDS ANNUALMAMMOGRAPHY BEGINNING AT AGE 40 THIS FACILITY USES A REMINDER SYSTEM TO ENSURE ALL PATIENTS RECEIVEREMINDER NOTIFICATIONS AT THE APPROPRIATE TIME BASED ON THE RECOMMENDATIONS OF THIS EXAM. Board Certified Radiologist. Accredited by the ACR and FDA. Report reported and signed by Ernie Luong on 07/04/2022 1557 John Jama DO IMG BI PROCEDURES Final Resu lt * Colonoscopy (12/04/2017 12:00 PM EDT) Anatomical Region Laterality Modality Endoscopy 12/04/2017 12:0 0 PM EDT Narrative 12/04/2017 12:00 PM EDT PERFORMED AT [facility] LOCATION:[id number] [facility] Procedure Note CONVERSION, GENERIC - 08/02/2022 PERFORMED AT [facility] LOCATION:[id number] [facility] John Jama DO ENDOSCOPY PROCEDURE ORDERABL ES Final Result from Last 3 Months or Most Recently Relevant to Health Maintenance Additional Health Concerns Active Problems Noted Date Diagnosed Date Patient on antidepressant monitoring plan 2024 Insurance [facility] MEDICARE COMPLETE Care Teams Juice Scaleman Relationship Specialty Start Date End Date Negro Morales MD [address] [place] [id number] PCP - General Family Medicine 10/30/24
--- OUTSIDE RECORDS SUMMARY | 2025-01-01 11:24 | XMS_ITS | Patient Health Record ---
Author Organization [facility] [place] Address [address] [place] [address] Care Team Providers Care Roof Service Technician Name Role Phone Star Morales Primary Care Provider Allergies Allergen (clinical drug ingredient) Drug/Non Drug Allergy documented on EMR Reaction Allergy Type Onset Date Status Substance with sulfonamide structure and antibacterial mechanism of action (substance) Sulfa Antibiotics Unknown Drug Allergy Active Penicillin Unknown Drug Allergy Active Results Component Value Reference Range Notes BNP Reviewed date:11/06/2024 01:15:24 PM Interpretation: Performing Lab: Notes/Report: [facility] , NT Pro B Type Natriuretic Pept 94.0 <=900.0 pg/mL Performing Lab: see note ML - [facility] LB CBC AUTO DIFF Reviewed date:11/06/2024 01:15:24 PM Interpretation: Performing Lab: Notes/Report: [facility] , White Blood Count 7.4 4.0-11.0 10 3/uL Red Blood Count 3.55 4.20-5.40 10 6/uL Hemoglobin 10.5 12.0-16.0 g/dL Hematocrit 34.3 36.0-48.0 % Mean Corpuscular Volume 96.6 81.0-99.0 fL Mean Corpuscular Hemoglobin 29.6 26.7-34.0 pg Mean Corpuscular HGB Conc 30.6 29.9-35.2 g/dL Red Cell Distribution Width 14.4 11.0-15.0 % Platelet Count 255 150-450 10 3/uL Mean Platelet Volume 10.2 9.5-13.5 fL Neutrophils Percent Auto 69.9 43.0-75.0 % Lymphocytes Percent Auto 16.4 20.5-60.0 % Monocytes Percent Auto 7.0 1.7-12.0 % Eosinophils Percent Auto 5.3 0.9-7.0 % Basophils Percent Auto 0.9 0.2-2.0 % Immature Granulocytes Pct Auto 0.5 0.0-0.5 % Neutrophils Absolute Auto 5.2 1.4-6.5 10 3/uL Lymphocytes Absolute Auto 1.2 1.2-3.8 10 3/uL Monocytes Absolute Auto 0.5 0.3-0.8 10 3/uL Eosinophils Absolute Auto 0.4 0.0-0.7 10 3/uL Basophils Absolute Auto 0.1 0.0-0.1 10 3/uL Immature Granulocytes Abs Auto 0.04 0.00-0.03 10 3/uL Performing Lab: see note ML - [facility] FREE T3 Reviewed date:11/06/2024 01:15:24 PM Interpretation: Performing Lab: Notes/Report: [facility] Free T3 2.04 2.18-3.98 pg/mL Performing Lab: see note ML - [facility] GLYCOHEMOGLOBIN A1C Reviewed date:11/06/2024 01:15:24 PM Interpretation: Performing Lab: Notes/Report: [facility] , Glycohemoglobin A1C 5.2 4.5-6.2 % > 7.0 ADA RECOMMENDED LIMIT 4.0 - 6.0 ADA THERAPEUTIC TARGET < 7.0 ACTION SUGGESTED Estimated Average Glucose 103 Performing Lab: see note ML - [facility] IRON Reviewed date:11/06/2024 01:15:24 PM Interpretation: Performing Lab: Notes/Report: [facility] , Iron 32.0 50.0-170.0 ug/dL Performing Lab: see note ML - [facility] LB LIPID PROFILE Reviewed date:11/06/2024 01:15:24 PM Interpretation: Performing Lab: Notes/Report: [facility] , Triglycerides 78 <=150 mg/dL Cholesterol 161 <=200 mg/dL HDL Cholesterol 74 40-60 mg/dL > or =60 mg/dl - LOW CARDIOVASCULAR RISK <40 mg/dl - HIGH CARDIOVASCULAR RISK LDL Cholesterol Calculated 72.0 <100 mg/dl OPTIMAL 100-129 mg/dl NEAR OR ABOVE OPTIMAL >190 mg/dl VERY HIGH 130-159 mg/dl BORDERLINE HIGH 160-189 mg/dl HIGH VLDL CHOLESTEROL 15.6 Chol HDL Ratio 2.2 7.1 - 11.0 MODERATE RISK >11.0 HIGH RISK 4.4 - 7.1 AVERAGE RISK 3.3 - 4.4 LOW RISK Performing Lab: see note - [facility] LB PROF 14(COMP METB) Reviewed date:11/06/2024 01:15:24 PM Interpretation: Performing Lab: Notes/Report: [facility] , Sodium 140 136-145 mmol/L Potassium 4.5 3.5-5.1 mmol/L Chloride 104 98-107 mmol/L Carbon Dioxide 35.5 21.0-32.0 mmol/L Anion Gap 5.0 Glucose 95 74-106 mg/dL Blood Urea Nitrogen 18.0 7.0-18.0 mg/dL Creatinine 0.97 0.55-1.02 mg/dL Estimated GFR ( Val >60 >=60 mL/min/1.73m 2 Estimated GFR (Non- Pili 56 >=60 mL/min/1.73m 2 BUN Creatinine Ratio 18.6 Calcium 8.7 8.5-10.1 mg/dL Bilirubin Total 0.2 0.2-1.0 mg/dL Aspartate Amino Transferase 14 15-37 U/L Alanine Aminotransferase 17 14-59 U/L Alkaline Phosphatase 76 46-116 U/L Total Protein 6.9 6.4-8.2 g/dL Albumin Level 2.8 3.4-5.0 g/dL Globulin 4.1 Albumin Globulin Ratio 0.7 Performing Lab: see note ML - [facility] LB T4 Reviewed date:11/06/2024 01:15:24 PM Interpretation: Performing Lab: Notes/Report: [facility] , T4 Thyroxine 7.40 4.80-13.90 ug/dL Performing Lab: see note ML - [facility] LB TSH Reviewed date:11/06/2024 01:15:24 PM Interpretation: Performing Lab: Notes/Report: [facility] , Thyroid Stimulating Hormone 9.759 0.358-3.740 u IU/mL Performing Lab: see note ML - [facility] LB VITAMIN D 25 [place] Reviewed date:11/06/2024 01:15:24 PM Interpretation: Performing Lab: Notes/Report: [facility] , Vitamin D 42.8 >100 ng/mL Potential Toxicity <20 ng/mL Vit D deficient 20-<30 ng/mL Vit D insufficient 30-100 ng/mL Vit D sufficient Performing Lab: see note ML - [facility] LB Reason For Referral No Information Medications Medication SIG (Take, Route, Frequency, Duration) Notes Start Date End Date Status Levothyroxine Sodium 137 MCG 1 tablet in the morning on an empty stomach Orally Once a day; Duration: 30 day(s) 10/30/2024 Active Meloxicam 15 MG 1 tablet Orally Once a day; Duration: 30 days 10/31/2024 Active LORazepam 1 MG 1 tablet Orally tid prn; Duration: 7 days As needed F41.9 01/01/2025 Active Losartan Potassium 100 MG 1 tablet Orall y Once a day; Duration: 30 day(s) 10/30/2024 Active Baclofen 10 MG 1 tablet as needed Orally Twice a day 10/30/2024 Active Montelukast Sodium 10 MG 1 tablet Orally Once a day; Duration: 30 days 10/30/2024 Active traZODone HCl 150 MG 1 1/2 tablet at bed time Orally Once a day; Duration: 30 days 10/30/2024 Active Breztri Aerosphere 160-9-4.8 MCG/ACT 2 puffs Inhalation Twice a day 10/30/2024 Active Esomeprazole Magnesium 20 MG 1 packet 1/ 2 to 1 hour before a meal mixed with 15 mL of water Orally Once a day; Duration: 30 day(s) 10/30/2024 Active Cetirizine HCl 10 MG 1 tablet Orally Onc e a day; Duration: 30 day(s) 10/30/2024 Active Furosemide 40 MG 1 tablet Orally Once a day; Duration: 30 day(s) 10/30/2024 Active Fluticasone Propionate (Inhal) 50 MCG/ACT 1 puff Inhalation Twice a day 10/30/2024 Active Immunizations Vaccine Route Administration Date Status Comme nts Flu, Fluad (13756) 65 yrs and older, single-dose syringe () IM Intramuscular 01/01/2025 Administered Social History Tobacco Use: Social History Observation Description Date Details (start date - stop date) Never Smoker NA - NA Tobacco Control (Standard) Question Answer Notes Tobacco use: Nonsmoker AUDIT-C (Standard) Question Answer Notes Did you have a drink containing alcohol in the p ast year? 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) Active confirmed Problem Heart failure (77750791) Heart failure, unspecified (I50.9) Active confirmed Problem COPD - Chronic obstructive pulmonary disease (91807430) COPD (chronic obstructive pulmonary disease) (J44.9) Active confirmed Problem Gastroesophageal reflux disease (634494834) GERD (gastroesophageal reflux disease) (K21.9) Active confirmed Problem Anxiety (52590255) Anxiety (F41.9) Active confi rmed Problem Hypothyroid (13398362) Hypothyroid (E03.9) Active confirmed Problem Sleep apnea (80383979) Sleep apnea (G47.30) Active confirmed Problem 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 (308029271) 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) Active confirmed Problem Obese class III (finding) (522749648) Obesity, class 3 (E66.813) Active confirmed Vital Signs Oximetry 88 % 01/01/2025 Blood pressure diastolic 60 mm Hg 01/01/2025 Height 62 in 01/01/2025 Blood pressure systolic 162 mm Hg 01/01/2025 Weight 283.6 lbs 01/01/2025 BMI 51.87 kg/m2 01/01/2025 Encounters Encounter Location Date Provider Diagnosis [facility] [address] [place] [address] 10/30/2024 [facility] [address] [place] [address] 10/31/2024 [facility] [address] [place] [address] 11/04/2024 Star Morales [facility] [address] [place] [address] 11/06/2024 Star Morales [facility] [address] [place] [address] 11/10/2024 Star Morales Anxiety F41.9 [facility] [address] [place] [address] 11/10/2024 Star Morales [facility] [address] [place] [address] 12/22/2024 Star Morales [facility] [address] [place] [address] 10/31/2024 Star Morales COPD (chronic obstructive pulmonary disease) J44.9 ; Sleep apnea G47.30 ; GERD (gastroesophageal reflux disease) K21.9 ; Hypothyroid E03.9 and Anxiety F41.9 [facility] [address] [place] [address] 01/01/2025 Star Morales Encounter for immunization Z23 ; Chronic obstructive pulmonary disease, unspecified J44.9 ; Obesity, class 3 E66.813 ; Controlled diabetes mellitus with circulatory complication E11.59 ; Bipolar disorder, current episode depressed, mild F31.31 ; Heart failure, unspecified I50.9 and Hip pain, acute, right M25.551 Assessments Encounter Date Diagnosis (ICD Code) Assessment Notes Treatment Notes Treatment Clinical Notes Section Notes 10/31/2024 COPD (chronic obstructive pulmonary disease) (ICD-10 - J44.9) 10/31/2024 Sleep apnea (ICD-10 - G47.30) 01/01/2025 Encounter for immunization (ICD-10 - Z23) 01/01/2025 Chronic obstructive pulmonary disease, unspecified (ICD-10 - J44.9) 11/10/2024 Anxiety (ICD-10 - F41.9) 01/01/2025 Obesity, class 3 (ICD-10 - E66.813) 10/31/2024 GERD (gastroesophageal reflux disease) (ICD-10 - K21.9) 10/31/2024 Hypothyroid (ICD-10 - E03.9) 01/01/2025 Controlled diabetes mellitus with circulatory complication (ICD-10 - E11.59) 01/01/2025 Bipolar disorder, current episode depressed, mild (ICD-10 - F31.31) 10/31/2024 Anxiety (ICD-10 - F41.9) 01/01/2025 Heart failure, unspecified (ICD-10 - I50.9) 01/01/2025 Hip pain, acute, right (ICD-10 - M25.551) Plan Of Treatment Pending Test Test Name Order Date HEMOGLOBIN A1C (GLYCO) 10/31/2024 IRON, TOTAL 10/31/2024 LIPID PANEL (CHOL/TRIG/HDL/LDL) 11/01/19 25 VITAMIN D, 25 LEVEL (TOTAL) 10/31/2024 THYROID PANEL (T4/TSH/FREE T3) 5 XR HIP RT 2 3V W PELVIS 01/01/2025 CMP (COMP MET BOLAND) w/eGFR CKD-EPI 2024 CBC WITH DIFF 10/31/2024 Next Appt Details Provider Name:Star Britt Morales, 10:30:00 AM, [address] [place], [address], Insurance Providers Payer Name Payer Address Payer Phone Subscriber Number Group Number Insured Name Patient Relationship to Insured Coverage Start Date Coverage End Date [facility] [address] [address] [place], [place] [phone] [id number] Myriam Altamirano Self - patient is the insured 4 Medical (General) History Medical History History ICD Code arthritis anxiety COPD GERD/Acid reflux high cholesterol HTN Thyroid Disorder Surgical History Surgery Date(Month/Year) oral surgery tubal ligation Hospitalization History Reason Date(Month/Year) see above
--- OUTSIDE RECORDS SUMMARY | 2025-01-01 11:25 | XMS_ITS | Encounter Summary ---
Author Organization [employer] Address [id number] [address] [place] [address] Care Team Providers Care Parking Inspector Name Role Phone Unavailable Primary Care Provider Unavailabl e Reason for Visit * Reason Onset Date Comments Med Refill 08/14/2023 Encounter Details Date Type Department Care Team (Late st Contact Info) Description 08/14/2023 Refill [facility] [address] [place] [id number] Robbin Day, [address] [place] [address] BMI 50.0-59.9, adult ([facility]) Social History Tobacco Use Types Packs/Day Years Used Date Smoking Tobacco: Former Cigarettes 1 30 0 05/20/1972 - 05/20/2002 Smokeless Tobacco: Never Alcohol Use Standard Drinks/Week Comments Yes 0 (1 standard drink = 0.6 oz pur e alcohol) social on holidays [facility] Utilities Answer Date Recorded In the past 12 months has [employer], gas, oil, or water company threatened to shut off services in your home? No 07/20/2023 Social Connection and Isolation Panel Answer Date Recorded In a typical week, how many times do you talk on the phone with family, friends, or neighbors? Once a week 06/28/2023 How often do you get together with friends or re latives? Never 06/28/2023 How often do you attend christianity or voodoo serv ices? Never 06/28/2023 Do you belong to any clubs o r organizations such as christianity groups, unions, fraternal or athletic groups, or school groups? No 06/28/2023 How often do you attend meet ings of the clubs or organizations you belong to? Never 06/28/2023 Are you , , di vorced, , never , or living with a partner? 06/28/2023 Overall Financial Resource Strain (CARDIA) Answe r Date Recorded How hard is it for you to pa y for the very basics like food, housing, medical care, and heating? Not hard at all 06/28/2023 PHQ-2 Answer Date Recorded Total Score 0 08/16/2023 PRAPARE - Transportation Answer Date Re corded In the past 12 months, has l ack of transportation kept you from medical appointments or from getting medications? No 05/2023 In the past 12 months, has l ack of transportation kept you from meetings, work, or from getting things needed for daily living? No 07/20/2023 Housing Instability Answer Date Recorde d Are you worried or concerned that in the next two months you may not have stable housing that you own, rent or stay in as a part of a household? No 07/20/2023 Childcare Answer Date Recorded Do problems getting child ca re make it difficult for you to work or study? No 06/28/2023 Employment Answer Date Recorded Do you need help finding a [employer] career center and/or a training program? No 06/28/2023 Hunger Screening Answer Date Recorded Within the past 12 months we worried whether our food would run out before we got money to buy more. Never True 08/16/2023 Within the past 12 months th e food we bought just didn't last and we didn't have money to get more. Never True 08/16/2023 Purpose - Life Answer Date Recorded I have a purpose and direction in my life. Agree 06/28/2023 Comments No Sex and Gender Information Value Date Recorded Sex Assigned at Not on file Legal Sex Female 11:42 AM EDT Gender Identity Not on file Sexual Orientation Not on file documented as of this encounter Plan of Treatment Not on file documented as of this encounter Visit Diagnoses Diagnosis BMI 50.0-59.9, adult (CMS-HCC) documented in this encounter Additional Health Concerns Assessment Noted Time PHQ-9 Depression Total Score: 0 07/19/19 24 10:36 AM EDT A Body Mass Index follow-up plan has been documented for the patient 11/24/2020 9:06 PM EDT documented as of this encounter
--- OUTSIDE RECORDS SUMMARY | 2025-01-01 11:25 | XMS_ITS | Encounter Summary ---
Author Organization [facility] Address [id number] [address] [place] [address] Care Team Providers Care Crew Mess Attendant Name Role Phone Unavailable Primary Care Provider Unavailabl e Encounter Details Date Type Department Care Team (Late st Contact Info) Description 08/15/2023 Refill [facility] - [facility] [address] [place] [address] Conrad Rhodes CMA BMI 50.0-59.9, adult ([facility]) Social History Tobacco Use Types Packs/Day Years Used Date Smoking Tobacco: Former Cigarettes 1 30 0 05/20/1972 - 05/20/2002 Smokeless Tobacco: Never Alcohol Use Standard Drinks/Week Comments Yes 0 (1 standard drink = 0.6 oz pur e alcohol) social on holidays [facility] Utilities Answer Date Recorded In the past 12 months has [employer], gas, oil, or water [employer] threatened to shut off services in your home? No 07/20/2023 Social Connection and Isolation Panel Answer Date Recorded In a typical week, how many times do you talk on the phone with family, friends, or neighbors? Once a week 06/28/2023 How often do you get together with friends or re latives? Never 06/28/2023 How often do you attend uatsdin or oriental orthodox serv ices? Never 06/28/2023 Do you belong to any clubs o r organizations such as uatsdin groups, unions, fraternal or athletic groups, or [...] Recorded Do you need help finding a [facility] career center and/or a training program? No [...] encounter Miscellaneous Notes * Telephone Encounter - Conrad Rhodes CMA - 08/15/2023 12:58 PM EDT Patient is also requesting a sleeping pill. documented in this encounter Plan of Treatment [...]
--- OUTSIDE RECORDS SUMMARY | 2025-01-01 11:25 | XMS_ITS | Encounter Summary ---
Author Organization [facility] Address [id number] [address] [place] [address] Care Team Providers Care Ramp Flight Attendant Name Role Phone Unavailable Primary Care Provider Unavailabl e Encounter Details Date Type Department Care Team (Late st Contact Info) Description 05/17/2023 Orders Only [facility] [address] [place] [address] Robbin Day, DO [address] [place] [address] Social History Tobacco Use Types Packs/Day Years Used Date Smoking Tobacco: Former Cigarettes 1 30 0 05/20/1972 - 05/20/2002 Smokeless Tobacco: Never Alcohol Use Standard Drinks/Week Comments Yes 0 (1 standard drink = 0.6 oz pur e alcohol) social on holidays PHQ-2 Answer Date Recorded Total Score 0 05/17/2023 Childcare Answer Date Recorded Childcare Unknown 08/26/2018 Employment Answer Date Recorded Employment Unknown 08/26/2018 Hunger Screening Answer Date Recorded Within the past 12 months we worried whether our food would run out before we got money to buy more. Never True 05/17/2023 Within the past 12 months th e food we bought just didn't last and we didn't have money to get more. Never True 05/17/2023 Purpose - Life Answer Date Recorded Purpose [...] Noted Time PHQ-9 Depression Total Score: 0 05/17/19 24 11:05 AM EST A Body Mass Index follow-up plan has been documented for the patient 11/24/2020 9:06 PM EDT documented as of this encounter
--- OUTSIDE RECORDS SUMMARY | 2025-01-01 11:25 | XMS_ITS | Encounter Summary ---
Author Organization [facility] Address [address] [place] [address] Care Team Providers Care Genetic Supervisor Name Role Phone WileyJohn Emily SANCHEZ Primary Care Provider + [phone] Negro Morales MD Primary Care Provider [phone] Reason for Visit * Reason Comments Med Refill Encounter Details Date Type Department Care Team (Late st Contact Info) Description 04/20/2024 Refill [facility] [address] [facility] [address] [place] [address] Abilio Manuel, [address] [facility] [address] [place] [address] Primary hypertension Social History Tobacco Use Types Packs/Day Years [...] 08/20/2023 How often do you attend chur or yazidi services? 1 to 4 times per year 08/20/2023 Do you belong to any clubs o r organizations such as mu-ism groups, unions, fraternal or athletic groups, or [...] Recorded Patient Health Questionnaire-2 Score 0 11/06/2023 [employer] of Occupat ional [facility] - Occupational Stress Questionnaire Answer Date Recorded [...] to sleep or slept in a senior care (including now)? No 08/20/2023 Comments Unknown Sex and Gender Information Value Date Recorded Sex Assigned at Not on file Legal Sex Female 7:03 PM EDT Gender Identity Not on file Sexual Orientation Not on file documented as of this encounter Miscellaneous Notes * Telephone Encounter - Amanda Panchal MA - 04/21/2024 8:54 AM EST duplicate documented in this encounter Plan of Treatment Not on file documented as of this encounter Goals Goal Patient Goal Type Associated Problems Recent Progress Patient-Stated? Author Help patient manage antidepressant medication Care Plan Patient on antidepressant monitoring plan No Amanda Panchal MA documented as of this encounter Visit Diagnoses Diagnosis Primary hypertension Unspecified essential hypertension documented in this encounter Additional Health Concerns Active Problems Noted Date Diagnosed Date Patient on antidepressant monitoring plan 2024 Assessment Noted Time PHQ-9 Depression Total Score: 0 09/10/19 24 9:00 AM EDT documented as of this encounter Care Teams Genetic Supervisor Relationship Specialty Start Date End Date John Jama DO [address] [facility] [address] [place] [address] PCP - General Family Medicine 08/22/23 10/29/24 Negro Morales MD [address] [facility] [place] [address] PCP - General Family Medicine 10/30/24 documented as of this encounter
--- OUTSIDE RECORDS SUMMARY | 2025-01-01 11:25 | XMS_ITS | Encounter Summary ---
Author Organization [facility] Address [facility] [id number] [address] [place] [address] Care Team Providers Care Taxi Dancer Name Role Phone Unavailable Primary Care Provider Unavailabl e Encounter Details Date Type Department Care Team (Late st Contact Info) Description 05/21/2023 Telephone [facility] [address] [place] [address] Robbin Day, DO [address] [place] [address] Social History Tobacco Use Types Packs/Day Years [...] encounter Miscellaneous Notes * Telephone Encounter - Wandy Garcia - 05/21/2023 11:12 AM EST ----- Message from Robbin Day DO sent at 05/17/2023 2:38 PM EST ----- AWV * Telephone Encounter - Wandy Garcia - 05/21/2023 11:12 AM EST Is she just a regular medicare wellness with [employer]? Or Welcome to Medicare * Telephone Encounter - Robbin Day DO - 05/21/2023 11:12 AM EST Regular with [employer] documented in this encounter Plan of Treatment [...]
--- OUTSIDE RECORDS SUMMARY | 2025-01-01 11:25 | XMS_ITS | Encounter Summary ---
Author Organization [facility] Address [address] [place] [address] Care Team Providers Care Publications Distribution Clerk Name Role Phone John Jama DO Primary Care Provider + [phone] Negro Morales MD Primary Care Provider [phone] Encounter Details Date Type Department Care Team (Late st Contact Info) Description 10/24/2023 Abstract [facility] [address] [facility] [address] [place] [address] John Jama DO [address] [facility] [address] [place] [address] Social History Tobacco Use Types Packs/Day Years [...] often do you attend chur ch or scientology services? 1 to 4 times per year 08/20/2023 Do you belong to any clubs o r organizations such as latter-day groups, unions, fraternal or athletic groups, or [...] Date Recorded Patient Health Questionnaire-2 Score 0 09/10/2023 [facility] of Occupat ional [facility] - Occupational Stress Questionnaire Answer Date Recorded [...] documented as of this encounter Care Teams Publications Distribution Clerk Relationship Specialty Start Date End Date John Jama DO [address] [address] PCP - General Family Medicine 08/22/23 10/29/24 Negro Morales MD [address] [place] [address] PCP - General Family Medicine 10/30/24 documented as of this encounter
--- OUTSIDE RECORDS SUMMARY | 2025-01-01 11:25 | XMS_ITS | Encounter Summary ---
Author Organization [facility] Address [address] [facility] [place] [address] Care Team Providers Care Production Counter Name Role Phone John Jama DO Primary Care Provider + [phone] John Jama DO Unavailable [phone] Unallocated, [facility] Provider Primary Care Provi coleen John Jama DO Primary Care Provider [phone] Negro Morales MD Primary Care Provider [phone] Encounter Details Date Type Department Care Team (Late st Contact Info) Description 03/02/2023 [facility] [address] [facility] [address] [place] [phone] John Jama, DO [address] [facility] [address] [place] [address] Social History Tobacco Use Types Packs/Day Years Used Date Smoking Tobacco: Never Smokeless Tobacco: Never Alcohol Use Standard Drinks/Week Comments Never 0 (1 standard drink = 0.6 oz pur e alcohol) AUDIT-C Answer Date Recorded Q1: How often do you have a drink containing alcohol? Never 12/05/2022 Q2: How many drinks containi ng alcohol do you have on a typical day when you are drinking? Patient does not drink Q3: How often do you have si x or more drinks on one occasion? Never 12/05/2022 PHQ-2 Answer Date Recorded Patient Health Questionnaire-2 Score 0 01/31/2023 Comments Unknown Sex and Gender Information Value Date Recorded Sex Assigned at Not on file Legal Sex Female 7:03 PM EDT Gender Identity Not on file Sexual Orientation Not on file documented as of this encounter Plan of Treatment Not on file documented as of this encounter Visit Diagnoses Not on filedocumented in this encounter Care Teams Production Counter Relationship Specialty Start Date End Date John Jama DO PCP - General Family Medicine 09/06/22 07/02/23 John Jama DO [address] [facility] [address] [place] [address] PCP - [facility] 11/17/22 08/20/23 Unallocated, Noms Provider, [address] [place] [address] PCP - General Family Medicine 07/03/23 08/21/23 John Jama DO [address] [facility] 230 [place] [address] PCP - General Family Medicine 08/22/23 10/29/24 Negro Morales MD [address] [place] [address] PCP - General Family Medicine 10/30/24 documented as of this encounter
--- OUTSIDE RECORDS SUMMARY | 2025-01-01 11:25 | XMS_ITS | Encounter Summary ---
Author Organization [facility] Address [address] [place] [address] Care Team Providers Care Fire Protection Inspector Name Role Phone John Jama DO Primary Care Provider + [phone] Negro Morales MD Primary Care Provider [phone] Encounter Details Date Type Department Care Team (Late st Contact Info) Description 03/31/2024 Abstract [facility] [address] [facility] [address] [place] [phone] John Jama DO [address] [facility] [address] [place] [address] Social History Tobacco Use Types Packs/Day Years [...] often do you attend chur ch or yarsani services? 1 to 4 times per year 08/20/2023 Do you belong to any clubs o r organizations such as worship groups, unions, fraternal or athletic groups, or [...] Recorded Patient Health Questionnaire-2 Score 0 11/06/2023 [facility] of Occupat ional [facility] - Occupational Stress Questionnaire Answer Date Recorded [...] place to sleep or slept in a intermediate (including now)? No 08/20/2023 Comments Unknown Sex [...] documented as of this encounter Care Teams Fire Protection Inspector Relationship Specialty Start Date End Date John Jama DO [address] [address] PCP - General Family Medicine 08/22/23 10/29/24 Negro Morales MD [address] [place] [address] PCP - General Family Medicine 10/30/24 documented as of this encounter
--- OUTSIDE RECORDS SUMMARY | 2025-01-01 11:25 | XMS_ITS | Encounter Summary ---
Author Organization [facility] Address [address] [place] [address] Care Team Providers Care Unit Nurse Name Role Phone John Jama DO Primary Care Provider + [phone] Negro Morales MD Primary Care Provider [phone] Encounter Details Date Type Department Care Team (Late st Contact Info) Description 02/08/2024 Abstract [facility] [address] [facility] [address] [place] [phone] John Jama DO [address] [facility] [address] [place] [address] Social History Tobacco Use Types Packs/Day Years [...] often do you attend chur ch or nondenominational services? 1 to 4 times per year 08/20/2023 Do you belong to any clubs o r organizations such as roman catholic groups, unions, fraternal or athletic groups, or [...] Recorded Patient Health Questionnaire-2 Score 0 11/06/2023 [facility] of Occupat ional [facility] - Occupational Stress Questionnaire Answer Date Recorded [...] place to sleep or slept in a retirement (including now)? No 08/20/2023 Comments Unknown Sex [...] documented as of this encounter Care Teams Unit Nurse Relationship Specialty Start Date End Date John Jama DO [address] [address] PCP - General Family Medicine 08/22/23 10/29/24 Negro Morales MD [address] [place] [address] PCP - General Family Medicine 10/30/24 documented as of this encounter
--- OUTSIDE RECORDS SUMMARY | 2025-01-01 11:25 | XMS_ITS | Encounter Summary ---
Author Organization [facility] Address [address] [place] [address] Care Team Providers Care Crop Or Grain Farmworker Name Role Phone John Jama DO Primary Care Provider + [phone] Negro Morales MD Primary Care Provider [phone] Encounter Details Date Type Department Care Team (Late st Contact Info) Description 01/30/2024 Orders Only [facility] [address] [facility] [address] [place] [phone] John Jama DO [address] [facility] [address] [address] [place] [address] JUNG (obstructive sleep apnea) (Primary Dx) Social History Tobacco Use Types Packs/Day Years [...] How often do you attend chur or islam services? 1 to 4 times per year 08/20/2023 Do you belong to any clubs o r organizations such as protestant groups, unions, fraternal or athletic groups, or [...] Recorded Patient Health Questionnaire-2 Score 0 11/06/2023 [facility] of Occupat ional [facility] - Occupational Stress Questionnaire Answer Date Recorded [...] place to sleep or slept in a [place] health care facility (including now)? No 08/20/2023 Comments Unknown Sex and Gender Information Value Date Recorded Sex Assigned at Not on file Legal Sex Female 7:03 PM EDT Gender Identity Not on file Sexual Orientation Not on file documented as of this encounter Plan of Treatment Not on file documented as of this encounter Visit Diagnoses Diagnosis JUNG (obstructive sleep apnea)- Primary Obstructive sleep apnea (adult) (pediatric) documented in this encounter Additional Health Concerns Assessment Noted Time PHQ-9 Depression Total Score: 0 09/10/19 9:00 AM EDT documented as of this encounter Care Teams Crop Or Grain Farmworker Relationship Specialty Start Date End Date John Jama DO [address] [address] PCP - General Family Medicine 08/22/23 10/29/24 Negro Morales MD [address] [place] [address] PCP - General Family Medicine 10/30/24 documented as of this encounter
--- OUTSIDE RECORDS SUMMARY | 2025-01-01 11:25 | XMS_ITS | Clinical Summary ---
Author Organization Apptio tem Address [id number] [address] [place] [address] Care Team Providers Care Roof Truss Builder Name Role Phone Unavailable Primary Care Provider Unavailabl e Allergies Active Allergy Reactions Criticality Noted Date Comments Adhesive Tape-Silicones Itching 03/05/2017 Codeine Palpitations Low 03/05/2017 Hydrocodone Tachycardia 09/18/2018 Oxycodone Rash Low 09/18/2018 Penicillins 03/05/2017 Oxycodone-Acetaminophen Itching 03/05/2017 Sulfa (Sulfonamide Antibiotics) Itching 03/05/2017 Adhesive 01/02/2021 Other reaction(s): Unknown Tramadol 01/02/2021 Other reaction(s): Headache Hydrocodone-Acetaminophen Palpitations Low 03/05/20 17 Medications montelukast (SINGULAIR) 10 mg tablet Take 1 tablet (10 mg total) by mouth nightly. Active esomeprazole (NexIUM) 40 mg capsule Take 1 capsule (40 mg total) by mouth every morning before breakfast. Active furosemide (LASIX) 40 mg tablet Take 1 tablet (40 mg total) by mouth daily. Active fluticasone (FLONASE) 50 mcg/actuation nasal spray Administer 1 spray into each nostril in the morning. Active albuterol (PROVENTIL HFA;VENTOLIN HFA) 90 mcg/actuation inhalerIndicatio ns:Mild intermittent asthma without complication Inhale 2 puffs every 4 (four) hours as needed for wheezing. 18 g 11 1 Active budesonide-glyco pyr-formoterol (BREZTRI AEROSPHERE) 160-9-4.8 mcg/actuation HFA aerosol inhaler 160 mcg every 12 (twelve) hours. Active levothyroxine (SYNTHROID, LEVOTHROID) 150 MCG tablet Take 1 tablet (150 mcg total) by mouth in the morning. 90 tablet 1 4 Active meloxicam (MOBIC) 15 mg tabletIndication s:Spinal stenosis of lumbar region with neurogenic claudication Take 1 tablet (15 mg total) by mouth in the morning. 30 tablet 2 4 Active baclofen (LIORESAL) 10 mg tablet Take 1 tablet (10 mg total) by mouth 3 (three) times a day as needed for muscle spasms. 4 Active losartan (COZAAR) 50 mg tablet Take 1 tablet (50 mg total) by mouth in the morning. 4 Active promethazine (PHENERGAN) 12.5 mg suppositoryIndic ations:Benign paroxysmal positional vertigo due to bilateral vestibular disorder Insert 1 suppository (12.5 mg total) into the rectum in the morning and 1 suppository (12.5 mg total) at noon and 1 suppository (12.5 mg total) in the evening and 1 suppository (12.5 mg total) before bedtime. 4 Active scopolamine (TRANSDERM-SCOP) 1 mg/3 daysIndications: Benign paroxysmal positional vertigo due to bilateral vestibular disorder Place 1 patch on the skin every third day. 10 patch 1 4 Active predniSONE (DELTASONE) 20 mg tabletIndication s:Chronic obstructive pulmonary disease, unspecified COPD type (CMS-HCC) Take 1 tablet (20 mg total) by mouth in the morning. 7 tablet 4 Active semaglutide, weight loss, (WEGOVY) 1 mg/0.5 mL pen injectorIndicati ons:BMI 50.0-59.9, adult (CMS-HCC) Inject 0.5 mL (1 mg total) under the skin once a week. 6 mL 1 4 Active Hospital, Clinic, or Other Facility Administered Medication Ordered Dose Route Frequency Start Date End Date Status albuterol (PROVENTIL,VENTOLIN) nebulizer solution 2.5 mgIndications:Chronic obstructive pulmonary disease, unspecified COPD type ([facility]-HCC) 2.5 mg nebu As needed 09/04/2022 Active Active Problems Problem Noted Date Diagnosed Date BPPV (benign paroxysmal posi tional vertigo), unspecified laterality 07/23/2023 Benign paroxysmal positional vertigo due to bilateral vestibular disorder 07/20/2023 Paresthesia of both hands 11/24/2020 BMI 50.0-59.9, adult 10/28/2018 Abnormal nuclear stress test 10/16/2018 Lumbosacral spondylosis without myelopathy 03/05 Disorder of sacrum 03/05/2017 Anxiety Primary osteoarthritis of left hip Asthma COPD (chronic obstructive pulmonary disease) Overview (09/24/2018): 2 1/2 L O2 at home PRN Depression GERD (gastroesophageal reflux disease) Hypertension Hypothyroid Sleep apnea Overview (09/24/2018): uses home O2 2 1/2 L at night. Refuses to uses CPAP Low back pain Bipolar disorder Fatty pancreas Fibromyalgia, primary Fatty liver Resolved Problems Problem Noted Date Diagnosed Date Resolved Date Community acquired pneumonia of right lower lobe of lung 04/12/2022 05/17/2023 Edema 11/08/2018 05/17/2023 Substance abuse 02/22/2023 Overview (09/24/2018): MARIJUANA Immunizations Immunization Administration Dates Next Due Influenza High Dose Preservative Free IM 019,01/08/2018,01/19/2017 Influenza LAIV (Nasal) 01/03/2018 Influenza, High-dose, Quadrivalent 12/21/2021 Influenza, Injectable, Quadrivalent 12/18/2015 Influenza, Injectable, quadrivalent (PF) 016 Pneumococcal Conjugate 13-Valent 12/20/2016 Pneumococcal Polysaccharide 05/17/2016 Tdap 12/20/2016 Zoster Live 01/19/2017 Family History Medical History Relation Name Comments Hypertension Brother Breast cancer Cousin paternal Alcohol abuse Father COPD Father Cancer Father Heart disease Father Breast cancer Maternal Aunt 1 Breast cancer Maternal Aunt 2 Heart disease Mother Relation Name Status Comments Brother Alive Cousin paternal Father Maternal Aunt 1 Maternal Aunt 2 Mother Alive Social History Tobacco Use Types Packs/Day Years Used Date Smoking Tobacco: Former Cigarettes 1 30 0 05/20/1972 - 05/20/2002 Smokeless Tobacco: Never Tobacco Cessation:Counseling Given: Not Answered Alcohol Use Standard Drinks/Week Comments Yes 0 (1 standard drink = 0.6 oz pur e alcohol) social on holidays [facility] Utilities Answer Date Recorded In the past 12 months has e electric, gas, oil, or water company threatened to shut off services in your home? No 07/20/2023 Social Connection and Isolation Panel Answer Date Recorded In a typical week, how many times do you talk on the phone with family, friends, or neighbors? Once a week 06/28/2023 How often do you get together with friends or re latives? Never 06/28/2023 How often do you attend anabaptism or samaritan serv ices? Never 06/28/2023 Do you belong to any clubs o r organizations such as anabaptism groups, unions, fraternal or athletic groups, or [...] Recorded Do you need help finding a [facility] career center and/or a training program? [...] Sign Reading Time Taken Comments Blood Pressure 120/60 08/16/2023 11:58 AM EDT Pulse 85 08/16/2023 11:58 AM EDT Temperature 36.4 C (97.6 F) 08/16/2023 11:58 AM EDT Respiratory Rate 22 08/16/2023 11:58 AM EDT Oxygen Saturation 93% 08/16/2023 11:58 AM EDT Inhaled Oxygen Concentration - - Weight 138 kg (304 lb 3.2 oz) 08/16/2023 11:58 A M EDT Height 157.5 cm (5' 2 ) 08/16/2023 11:58 AM EDT Body Mass Index 55.64 08/16/2023 11:58 AM EDT Plan of Treatment Health Maintenance Due Date Last Done Comments Zoster (Shingles) Vaccine (2 of 3) 03/16/2017 01/19/2017 Medicare Annual Wellness Visit 06/27/2024 06/28/2023 Adult BMI Screening 08/15/2024 08/16/2023 Depression Screening 08/15/2024 08/16/2023 Fall Risk Screening 08/15/2024 08/16/2023 Tobacco Screening 08/15/2024 08/16/2023 COVID-19 Vaccine ( season) 2024 12/23/2021, 01/28/2021, 06/22/2020, Additional history exists Influenza Vaccine 11/17/2024 12/21/2021, , 01/08/2018, Additional history exists DTaP,Tdap and Td Vaccines (2 - Td or Tdap) 12/20/2026 12/20/2016 Colonoscopy 08/18/2027 12/04/2017, 11/17, 11/29/2017, Additional history exists Postponed from 12/04/2022 (Not Indicated) Medical Devices Not on file Procedures Procedure Name Priority Date/Time Associated Diagnosis Comments COLONOSCOPY 11/29/2017 9:34 AM EDT from Last 3 Months or Most Recently Relevant to Health Maintenance Results * Colonoscopy (11/29/2017 9:34 AM EDT) 11/29/2017 9:34 AM EDT [facility] PM CARDIOVASCULAR - 11/29/2017 9:49 AM EDT [facility] Patient Name: Myriam Altamirano Procedure Date No Time: 11/29/2017 Date of : 1950 Admit Type: Outpatient Age: 67 Room: [place] [address] Gender: Female Note Status: Finalized Attending MD: Wojciech Cedeno DO Procedure: Colonoscopy Indications: Rectal bleeding Providers: Wojciech Cedeno DO Medicines: Propofol per Anesthesia Complications: No immediate complications. Procedure: After I obtained informed consent, the scope was passed under direct vision. Throughout the procedure, the patient's blood pressure, pulse, and oxygen saturations were monitored continuously. The OLYMPUS [id number] #[id number] ADULT COLONOSCOPE was introduced through the anus and advanced to the cecum, identified by appendiceal orifice and ileocecal valve. The colonoscopy was performed with difficulty due to the patient's body habitus. Successful completion of the procedure was aided by applying abdominal pressure. The patient tolerated the procedure well. The quality of the bowel preparation was adequate to identify polyps. Findings: The perianal and digital rectal examinations were normal. Many small and large-mouthed diverticula were found in the sigmoid colon and descending colon. The exam was otherwise without abnormality on direct and retroflexion views. Estimated Blood Loss: Estimated blood loss: none. Impression: - Diverticulosis in the sigmoid colon and in the descending colon. - The examination was otherwise normal on direct and retroflexion views. - No specimens collected. Recommendation: - Discharge patient to home. - High fiber diet for the rest of the patient's life. - Repeat colonoscopy in 10 years for screening purposes. - Return to my office in 1 week. Procedure Code(s): --- Professional --- 17306, Colonoscopy, flexible; diagnostic, including collection of specimen(s) by brushing or washing, when performed (separate procedure) Diagnosis Code(s): --- Professional --- K62.5, Hemorrhage of anus and rectum K57.30, Diverticulosis of large intestine without perforation or abscess without bleeding CPT copyright 2017 [employer]. All rights reserved. The codes documented in this report are preliminary and upon data coder operator review may be revised to meet current compliance requirements. DO Wojciech Craft DO 11/29/2017 9:48:26 AM Number of Addenda: 0 Note Initiated On: 11/29/2017 9:34 AM Procedure Note Wojciech Cedeno DO - 11/29/2017 [facility] Patient Name: Myriam Altamirano Procedure Date No Time: 11/29/2017 Date of : 1950 Admit Type: Outpatient Age: 67 Room: [place] [address] Gender: Female Note Status: Finalized Attending MD: Wojciech Cedeno DO Procedure: Colonoscopy Indications: Rectal bleeding Providers: Wojciech Cedeno DO Medicines: Propofol per Anesthesia Complications: No immediate complications. Procedure: After I obtained informed consent, the scope waspassed under direct vision. Throughout the procedure, the patient's blood pressure, pulse, and oxygensaturations were monitored continuously. The OLYMPUS [id number] #[id number] ADULT COLONOSCOPE was introduced throughthe anus and advanced to the cecum, identified by appendiceal orifice and ileocecal valve. The colonoscopy was performed with difficulty due to the patient's body habitus. Successful completion of the procedure was aided by applying abdominal pressure.The patient tolerated the procedure well. The quality of the bowel preparation was adequate to identifypolyps. Findings: The perianal and digital rectal examinations were normal. Many small and large-mouthed diverticula were found in the sigmoidcolon and descending colon. The exam was otherwise without abnormality on direct and retroflexion views. Estimated Blood Loss: Estimated blood loss: none. Impression: - Diverticulosis in the sigmoid colon and in the descending colon. - The examination was otherwise normal on direct and retroflexion views. - No specimens collected. Recommendation: - Discharge patient to home. - High fiber diet for the rest of the patient'slife. - Repeat colonoscopy in 10 years for screeningpurposes. - Return to my office in 1 week. Procedure Code(s): --- Professional --- 42324, Colonoscopy, flexible; diagnostic, including collection of specimen(s) by brushing or washing,when performed (separate procedure) Diagnosis Code(s): --- Professional --- K62.5, Hemorrhage of anus and rectum K57.30, Diverticulosis of large intestine without perforation orabscess without bleeding CPT copyright 2017 [employer]. All rights reserved. The codes documented in this report are preliminary and upon data coder operator reviewmay be revised to meet current compliance requirements. DO Wojciech Craft DO 11/29/2017 9:48:26 AM Number of Addenda: 0 Note Initiated On: 11/29/2017 9:34 AM Wojciech Cedeno DO GI PROCEDURE ORDERABLES Fin al Result PM CARDIOVASCULAR from Last 3 Months or Most Recently Relevant to Health Maintenance Insurance MEDICAID [place] [address] Advance Directives * Full Code (Latest Code Status on File) Date Activated Date Inactivated Comments 07/20/2023 5:23 PM 07/24/2023 6:29 PM * Full Code Date Activated Date Inactivated Comments 04/13/2022 4:18 AM 04/17/2022 5:03 PM
--- OUTSIDE RECORDS SUMMARY | 2025-01-01 11:25 | XMS_ITS | Encounter Summary ---
Author Organization [facility] Address [address] [place] [address] Care Team Providers Care Vocational Trainer Name Role Phone John Jama DO Primary Care Provider + [phone] Negro Morales MD Primary Care Provider [phone] Encounter Details Date Type Department Care Team (Late st Contact Info) Description 06/27/2024 Abstract [facility] [address] [facility] [address] [place] [phone] John Jama DO [address] [facility] [address] [place] [address] Social History Tobacco Use Types Packs/Day Years [...] often do you attend chur ch or rastafari services? 1 to 4 times per year 08/20/2023 Do you belong to any clubs o r organizations such as sabianism groups, unions, fraternal or athletic groups, or [...] Recorded Patient Health Questionnaire-2 Score 0 11/06/2023 [facility] of Occupat ional [facility] - Occupational Stress Questionnaire Answer [...] place to sleep or slept in a penitentiary (including now)? No 08/20/2023 Comments Unknown Sex [...] documented as of this encounter Care Teams Vocational Trainer Relationship Specialty Start Date End Date John Jama DO [address] [facility] [address] [place] [address] PCP - General Family Medicine 08/22/23 10/29/24 Negro Morales MD [address] [facility] [place] [address] PCP - General Family Medicine 10/30/24 documented as of this encounter
--- OUTSIDE RECORDS SUMMARY | 2025-01-01 11:25 | XMS_ITS | Encounter Summary ---
Author Organization [facility] Address [address] [facility] [place] [address] Care Team Providers Care Rn Cardiac Name Role Phone John Jama DO Primary Care Provider + [phone] John Jama DO Unavailable [phone] Unallocated, Noms Provider Primary Care Provi coleen John Jama DO Primary Care Provider [phone] Negro Morales MD Primary Care Provider [phone] Encounter Details Date Type Department Care Team (Late st Contact Info) Description 06/21/2023 Orders Only [facility] [address] [facility] [address] [place] [address] Laureen Oh MA Chronic pain of both shoulders Social History Tobacco Use Types Packs/Day Years [...] as of this encounter Visit Diagnoses Diagnosis Chronic pain of both shoulders documented in this encounter Care Teams Rn Cardiac Relationship Specialty Start Date End Date John Jama DO PCP - General Family Medicine 09/06/22 07/02/23 John Jama DO [address] [facility] [address] [place] [address] PCP - [facility] 11/17/22 08/20/23 Unallocated, Noms Provider, [address] [place] [address] PCP - General Family Medicine 07/03/23 08/21/23 John Jama DO [address] [facility] [address] [place] [address] PCP - General Family Medicine 08/22/23 10/29/24 Negro Morales MD [address] [place] [address] PCP - General Family Medicine 10/30/24 documented as of this encounter
--- OUTSIDE RECORDS SUMMARY | 2025-01-01 11:25 | XMS_ITS | Encounter Summary ---
Author Organization [facility] Address [address] [place] [address] Phone Care Team Providers Care Scorer Helper Name Role Phone John Jama DO Primary Care Provider [phone] Encounter Details Date Type Department Care Team (Late st Contact Info) Description 01/29/2023 Scanned Document [facility] [address] [place] [id number] Scanning, Generic Provider Social History Tobacco Use Types Packs/Day Years Used Date Smoking Tobacco: Never Assessed Comments Unknown Sex and Gender Information Value [...] Date/Time Associated Diagnosis Comments OUTSIDE IMAGING SCAN 01/29/2023 documented in this encounter Results * OUTSIDE IMAGING SCAN (01/29/2023) Anatomical Region Laterality Modality Other Narrative 01/29/2023 Ordered by an unspecified provider. us Generic Provider Scanning OUTSIDE SCAN Final Result documented in this encounter Visit Diagnoses Not on filedocumented in this encounter Care Teams Scorer Helper Relationship Specialty Start Date End Date John Jama DO [address] [place] [address] PCP - General 09/18/23 documented as of this encounter
--- OUTSIDE RECORDS SUMMARY | 2025-01-01 11:25 | XMS_ITS | Encounter Summary ---
Author Organization [facility] Address [address] [place] [address] Care Team Providers Care Hotel Controller Name Role Phone John Jama DO Primary Care Provider + [phone] Negro Morales MD Primary Care Provider [phone] Encounter Details Date Type Department Care Team (Late st Contact Info) Description 05/30/2024 Orders Only [facility] [address] [place] [address] Atypical chest pain; Abnormal EKG; Chronic heart failure with preserved ejection fraction (HCC) Social History Tobacco Use Types Packs/Day Years [...] often do you attend chur ch or amish services? 1 to 4 times per year 08/20/2023 Do you belong to any clubs o r organizations such as nondenominational groups, unions, fraternal or athletic groups, or [...] Recorded Patient Health Questionnaire-2 Score 0 11/06/2023 [facility] - Occupational Stress [...] place to sleep or slept in a group home (including now)? No 08/20/2023 Comments Unknown Sex [...] as of this encounter Visit Diagnoses Diagnosis Atypical chest pain Other chest pain Abnormal EKG Nonspecific abnormal electrocardiogram (ECG) (EKG) Chronic heart failure with preserved ejection fraction (HCC) documented in this encounter Additional Health Concerns Active Problems Noted Date Diagnosed Date Patient on antidepressant monitoring plan 2024 Assessment Noted Time PHQ-9 Depression Total Score: 0 09/10/19 24 9:00 AM EDT documented as of this encounter Care Teams Hotel Controller Relationship Specialty Start Date End Date John Jama DO [address] [facility] [address] [place] [address] PCP - General Family Medicine 08/22/23 10/29/24 Negro Morales MD [address] [place] [address] PCP - General Family Medicine 10/30/24 documented as of this encounter
--- OUTSIDE RECORDS SUMMARY | 2025-01-01 11:25 | XMS_ITS | Encounter Summary ---
Author Organization [facility] Address [address] [facility] [place] [address] Care Team Providers Care Minister Name Role Phone John Jama DO Primary Care Provider + [phone] John Jama DO Unavailable [phone] Unallocated, Noms Provider Primary Care Provi coleen John Jama DO Primary Care Provider [phone] Negro Morales MD Primary Care Provider [phone] Encounter Details Date Type Department Care Team (Late st Contact Info) Description 02/01/2023 Orders Only [facility] [address] [facility] [address] [place] [phone] A, Unknown Practice [address] [phone] Social History Tobacco Use Types Packs/Day Years [...] Procedure Name Priority Date/Time Associated Diagnosis Comments TRANSTHORACIC ECHO (TTE) COMPLETE Routine 01/29/2023 7:57 AM EST XR CHEST 2 VIEWS Routine 01/29/2023 7:57 AM EST documented in this encounter Results * Transthoracic echo (TTE) complete (01/29/2023 7:57 AM EST) Anatomical Region Laterality Modality Heart Ultrasound us Unknown Practice A CV ECHO PROCEDURES Final Resu lt * XR chest 2 views (01/29/2023 7:57 AM EST) Anatomical Region Laterality Modality Chest Radiographic Terri ging us Unknown Practice A IMG XR PROCEDURES Final Resul t documented in this encounter Visit Diagnoses Not on filedocumented in this encounter Care Teams Minister Relationship Specialty Start Date End Date John Jama DO PCP - General Family Medicine 09/06/22 07/02/23 John Jama DO [address] [facility] [address] [place] [address] PCP - [facility] 11/17/22 08/20/23 Unallocated, Noms Provider, [facility] [place] [address] PCP - General Family Medicine 07/03/23 08/21/23 John Jama DO [address] [place] [address] PCP - General Family Medicine 08/22/23 10/29/24 Negro Morales MD [address] [place] [address] PCP - General Family Medicine 10/30/24 documented as of this encounter
--- OUTSIDE RECORDS SUMMARY | 2025-01-01 11:25 | XMS_ITS | Encounter Summary ---
Author Organization [facility] Address [id number] [place] [address] Care Team Providers Care Senior Network Architect Name Role Phone Unavailable Primary Care Provider Unavailabl e Encounter Details Date Type Department Care Team (Late st Contact Info) Description 07/20/2023 Telephone [facility] Internal Medicine - Family Medicine [address] [place] [address] Robbin Day, DO [address] [place] [address] Social History Tobacco Use Types Packs/Day Years Used Date Smoking Tobacco: Former Cigarettes 1 30 0 05/20/1972 - 05/20/2002 Smokeless Tobacco: Never Alcohol Use Standard Drinks/Week Comments Yes 0 (1 standard drink = 0.6 oz pur e alcohol) social on holidays [facility] Utilities Answer Date Recorded In the past 12 months has [employer], gas, oil, or water company threatened [...] Never 06/28/2023 How often do you attend jain or shinto serv ices? Never 06/28/2023 Do you belong to any clubs o r organizations such as jain groups, unions, fraternal or athletic groups, or [...] PHQ-2 Answer Date Recorded Total Score 0 07/19/2023 PRAPARE - Transportation Answer Date Re corded [...] Recorded Do you need help finding a [facility] career center and/or a training program? No 06/28/2023 Hunger Screening Answer Date Recorded Within the past 12 months we worried whether our food would run out before we got money to buy more. Never True 07/20/2023 Within the past 12 months th e food we bought just didn't last and we didn't have money to get more. Never True 07/20/2023 Purpose - Life Answer Date Recorded I have a purpose and direction in my life. Agree 06/28/2023 Comments No Sex and Gender Information Value Date Recorded Sex Assigned at Not on file Legal Sex Female 11:42 AM EDT Gender Identity Not on file Sexual Orientation Not on file documented as of this encounter Functional Status documented as of this encounter Plan of Treatment Not on file documented as of this encounter Visit Diagnoses Not on filedocumented in this encounter Additional Health Concerns Assessment Noted Time PHQ-9 Depression Total Score: 0 07/19/19 10:36 AM EDT A Body Mass Index follow-up plan has been documented for the patient 11/24/2020 9:06 PM EDT documented as of this encounter
--- OUTSIDE RECORDS SUMMARY | 2025-01-01 11:26 | XMS_ITS | Encounter Summary ---
Author Organization [facility] Address [id number] [address] [place] [address] Care Team Providers Care Java Web Engineer Name Role Phone Unavailable Primary Care Provider Unavailabl e Encounter Details Date Type Department Care Team (Late st Contact Info) Description 08/19/2023 Orders Only [facility] Internal Medicine - Family Medicine [address] [place] [address] Robbin Day, DO [address] [place] [address] BMI 50.0-59.9, adult ([facility] Social History Tobacco Use Types Packs/Day Years Used Date Smoking Tobacco: Former Cigarettes 1 30 0 05/20/1972 - 05/20/2002 Smokeless Tobacco: Never Alcohol Use Standard Drinks/Week Comments Yes 0 (1 standard drink = 0.6 oz pur e alcohol) social on holidays [facility] Utilities Answer Date Recorded In the past 12 months has [employer], gas, oil, or water company threatened [...] Never 06/28/2023 How often do you attend worship or sabianist serv ices? Never 06/28/2023 Do you belong [...] Recorded Do you need help finding a [facility] career center and/or a training program? No [...] Noted Time PHQ-9 Depression Total Score: 0 08/16/19 11:56 AM EDT A Body Mass Index follow-up plan has been documented for the patient 11/24/2020 9:06 PM EDT documented as of this encounter
--- OUTSIDE RECORDS SUMMARY | 2025-01-01 11:26 | XMS_ITS | Encounter Summary ---
Author Organization [facility] Address [id number] [address] [place] [address] Care Team Providers Care District Court Justice Name Role Phone Unavailable Primary Care Provider Unavailabl e Encounter Details Date Type Department Care Team (Late st Contact Info) Description 01/15/2024 Telephone [facility] [address] [phone] Angely Barrios LPN Social History Tobacco Use Types Packs/Day Years Used Date Smoking Tobacco: Former Cigarettes 1 30 0 05/20/1972 - 05/20/2002 Smokeless Tobacco: Never Alcohol Use Standard Drinks/Week Comments Yes 0 (1 standard drink = 0.6 oz pur e alcohol) social on holidays [facility] Utilities Answer Date Recorded In the past 12 months has [employer], gas, oil, or water [employer] threatened to shut off services in your home? No 07/20/2023 Social Connection and Isolation Panel Answer Date Recorded In a typical week, how many times do you talk on the phone with family, friends, or neighbors? Once a week 06/28/2023 How often do you get together with friends or re latives? Never 06/28/2023 How often do you attend sabianist or moravian serv ices? Never 06/28/2023 Do you belong to any clubs o r organizations such as sabianist groups, unions, fraternal or athletic groups, or [...] Recorded Do you need help finding a [facility] career center and/or a training program? [...] encounter Miscellaneous Notes * Telephone Encounter - Angely Barrios LPN - 01/15/2024 2:35 PM EDT Dulce from PCP's office LM on [facility] nurse line asking a few questions regarding this PT and her care,per PT she was told to stop her oxygen and CPAP, spoke with dulce and read her Sk's note that states to USE HER OXYGEN AND HER CPAP, she assumed that as well but patient seems to be waiting up everyconfused, and they wanted to make her a f/u appt with [facility] in [place]. Appt made on 04/16/24 documented in this encounter Plan of Treatment Not on file documented as of this encounter Visit Diagnoses Not on filedocumented in this encounter Additional Health Concerns Assessment Noted Time PHQ-9 Depression Total Score: 0 08/16/19 24 11:56 AM EDT A Body Mass Index follow-up plan has been documented for the patient 11/24/2020 9:06 PM EDT documented as of this encounter
--- OUTSIDE RECORDS SUMMARY | 2025-01-01 11:26 | XMS_ITS | Encounter Summary ---
Author Organization [facility] Address [id number] [address] [place] [address] Care Team Providers Care Psych Sales Specialist Name Role Phone Magalie Blanca DO Primary Care Provider [phone] Encounter Details Date Type Department Care Team (Late st Contact Info) Description 02/06/2019 [facility] [address] [place] [address] Gela Escobar CMA Social History Tobacco Use Types Packs/Day Years Used Date Smoking Tobacco: Former Cigarettes 1 30 0 05/20/1972 - 05/20/2002 Smokeless Tobacco: Never Alcohol Use Standard Drinks/Week Comments Yes 0 (1 standard drink = 0.6 oz pur e alcohol) social on holidays Childcare Answer Date Recorded Childcare Unknown 08/26/2018 Employment Answer Date Recorded Employment Unknown 08/26/2018 Comments No Sex and Gender Information Value [...] documented as of this encounter Care Teams Psych Sales Specialist Relationship Specialty Start Date End Date Magalie Blanca DO [address] [place] [address] PCP - General Family Medicine 05/18/20 04/11/22 documented as of this encounter
--- NOTE | 2025-01-01 11:50 | XR_ITS ---
The [address] [address] Patient Name: FRANCIE GARCIA MRN: [id number] date: 1950 Sex: F Assigned Patient Location: [facility] Current Patient Location: [facility] Accession/Order Number: [id number] Exam Date: 01/01/2025 11:42 Report Date: 01/01/2025 14:44 At the request of: KIT WALTERS MD Procedure: XR hip LT 2V w/ pelvis Left hip 2 views with one view pelvis. Reason for exam: Acute left hip pain. COMPARISON: None. FINDINGS: Severe degenerative changes involving the left hip without acute bony process. Moderate degenerative changes involving the right hip. Additional degenerative changes involving the visualized lower lumbar spine and SI joints. 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 Impression dictated by: Steve Michel Jr., D.O. 01/01/2025 2:44 PM Dictation Location: [place] [address] Electronically authenticated by: [id number] Y Date: 01/01/2025 14:44
== END 2025-01-01 11:13 | disposition home or self-care (01) ==
LOC: RAD 11:19
PROVIDERS: PCP Family Medicine; Visit Provider Family Medicine
DX: M25.552 Pain in left hip (principal); M16.12 Unilateral primary osteoarthritis, left hip
CPT/HCPCS: 73502